=== PATIENT | male | born 1950 | race Caucasian/White ===

== ENCOUNTER 2018-10-21 16:10 | Outpatient (CLI) | payer BC, OTHER ==
[2018-10-21 17:00] LABS: INR-International Normal Ratio 1.1
[2018-10-21 17:15] LABS: ALT (SGPT) 23 U/L (8-55); AST (SGOT) 22 U/L (5-34); Albumin 4.1 g/dL (3.4-4.8); Alkaline Phosphatase 85 U/L (40-150); Anion Gap 15 mmol/L (10-20); BUN (Urea Nitrogen) 16 mg/dL (8.4-25.7); Bilirubin, Direct 0.1 mg/dL (0.1-0.3); Bilirubin, Total 0.3 mg/dL (0.2-1.2); Calc. Creatinine Clearance 0 mL/min (70-130); Calcium 9.4 mg/dL (7.8-10.44); Carbon Dioxide 20 mmol/L (23-31); Chloride 108 mmol/L (98-107); Estimated GFR-MDRD 63; Globulin 3.3 g/dL (2.4-3.5); Glucose 90 mg/dL (80-115); Potassium 4.1 mmol/L (3.5-5.1); Protein, Total 7.4 g/dL (5.8-8.1); Sodium 139 mmol/L (136-145)
== END 2018-10-21 16:11 | disposition home or self-care (01) ==
LOC: LABBT 16:10
PROVIDERS: ATTEND Internal Medicine Cardiovascular Disease
DX: Z01.812 Encounter for preprocedural laboratory examination (principal); R07.9 Chest pain, unspecified
CPT/HCPCS: 80053; 80076; 85610; 85730

== ENCOUNTER 2018-10-22 06:36 | Inpatient (IN) | payer BC, OTHER ==
[2018-10-22] MEDS ORDERED: Diazepam 5 MG TAB ONE (06:50)
[2018-10-22] MEDS ORDERED: Nitroglycerin 100MG/250ML BOT 0 ML ONE (08:20)
[2018-10-22] MEDS ORDERED: Heparin 10,000 UNITS/1 ML VIAL ONE (08:20)
[2018-10-22] MEDS ORDERED: Midazolam HCl 2 mg/2 ml Vial ONE ×2 (08:54→12:43)
[2018-10-22] MEDS ORDERED: Iopamidol 370 76% 100 ML VIAL ONE (09:32)
[2018-10-22] MEDS ORDERED: Communication Order-Pharmacy FS ONE (10:29)
[2018-10-22 11:26] LABS: #Basophils 0.1 thou/uL (0.0-0.2); #Eosinphils 0.3 thou/uL (0.0-0.7); #Lymphocytes 4.1 thou/uL (1.20-3.40); #Monocytes 0.9 thou/uL (0.11-0.59); #Neutrophils 5.7 thou/uL (1.40-6.50); %Basophils 0.9 % (0.0-1.0); %Eosinophils 2.9 % (0.0-10.0); %Lymphocytes 36.9 % (21.0-51.0); %Monocytes 8.2 % (0.0-10.0); %Neutrophils 51.1 % (42.0-75.0); Hemoglobin 14.8 g/dL (14.0-18.0); Mean Corpuscular HGB CONC 32.9 g/dL (32.0-36.0); Mean Corpuscular Hemoglobin 28.9 pg (27.0-31.0); Mean Corpuscular Volume 87.9 fL (78.0-98.0); Mean Platelet Volume 9.1 fL (7.4-10.4); Platelet Count 250 thou/uL (130-400); Red Blood Cell (RBC) Count 5.13 mill/uL (4.70-6.10); White Blood Cell (WBC) Count 11.2 thou/uL (4.8-10.8)
[2018-10-22 11:37] LABS: Hemoglobin A1c 5.5 % (4.0-6.0)
[2018-10-22] MEDS ORDERED: Midazolam HCl 5 mg/5 ml Vial ONE ×2 (12:32→14:19)
[2018-10-22] MEDS ORDERED: Dexmedetomidine 200 MCG/2 ML VIAL ONE (12:32)
[2018-10-22] MEDS ORDERED: Vecuronium 10 MG VIAL ONE ×3 (12:32→15:09)
[2018-10-22] MEDS ORDERED: Fentanyl 100 MCG/2 ML VIAL ONE (12:32)
[2018-10-22] MEDS ORDERED: Norepinephrine 8 MG/0.9% NS 250 ML ONE (12:32)
--- NOTE | 2018-10-22 12:44 | RAD ---
AP VIEW CHEST: HISTORY: Preoperative chest radiograph. Chest pain. TECHNIQUE: AP view chest is obtained. FINDINGS: EKG leads seen over the chest. The lungs are well aerated. No evidence of active intrathoracic dise ase is seen. No evidence of effusions, pneumonia, or pneumothorax is seen. IMPRESSION: Unremarkable anterior-posterior view chest. POS: [facility]
[2018-10-22] MEDS ORDERED: Heparin 10,000 UNITS/1 ML VIAL 30,000 UNITS in Sodium Chloride 0.9% 1,000 ML IVPB SCH (14:00)
[2018-10-22] MEDS ORDERED: Milrinone 10 MG/10 ML VIAL ONE (14:12)
[2018-10-22] MEDS ORDERED: Bupivacaine HCl 0.5%/Epinephrine 1:200,000/PF 30 ml Vial ONE (14:36)
[2018-10-22] MEDS ORDERED: Dexamethasone 4 mg/ml Vial ONE (14:36)
[2018-10-22] MEDS ORDERED: Albumin 5% 500 ML ONE (14:54)
[2018-10-22] MEDS ORDERED: Aminocaproic Acid 5 GM/20 ML VIAL ONE (15:09)
[2018-10-22] MEDS ORDERED: Thrombin 5000 UNITS/5 ML VIAL ONE (15:09)
[2018-10-22] MEDS ORDERED: Mannitol 12.5 GM/50 ML ONE (15:09)
[2018-10-22] MEDS ORDERED: Sodium Bicarb 50 MEQ/50 ML VIAL ONE (15:09)
[2018-10-22] MEDS ORDERED: Heparin 30,000 units/30 ml VIAL ONE (15:09)
[2018-10-22] MEDS ORDERED: Heparin 5,000 UNITS/ML VIAL ONE (15:09)
[2018-10-22] MEDS ORDERED: Glycopyrrolate 0.2 MG/ML 5 ML SYRINGE ONE (15:09)
[2018-10-22] MEDS ORDERED: Lidocaine 2% PF 100 mg/5 ml Syringe ONE (15:09)
[2018-10-22] MEDS ORDERED: Nitroglycerin 50 MG/250 ML BOT ONE (15:09)
[2018-10-22] MEDS ORDERED: ePHEDrine/0.9% NaCl/PF SYRINGE 50 mg/10 ml ONE (15:09)
[2018-10-22] MEDS ORDERED: Dexamethasone 20 MG/5 ML VIAL ONE (15:09)
[2018-10-22] MEDS ORDERED: Ondansetron PF 4 MG/2 ML Vial ONE (15:09)
[2018-10-22] MEDS ORDERED: Papaverine 60 MG/2 ML VIAL ONE (15:09)
[2018-10-22] MEDS ORDERED: Calcium Chloride 1 GM/10 ML Abboject SYRINGE ONE (15:09)
[2018-10-22] MEDS ORDERED: Protamine Sulfate 250 MG/25 ML VIAL ONE (15:09)
[2018-10-22] MEDS ORDERED: Magnesium 5 GM/10 ML VIAL ONE (15:09)
[2018-10-22] MEDS ORDERED: Cardioplegic Soln 1,000 ML BAG ONE (15:09)
[2018-10-22] MEDS ORDERED: Ketorolac Tromethamine 30 MG/ML VIAL ONE (15:09)
[2018-10-22] MEDS ORDERED: Potassium Chloride 60 MEQ/30 ML VIAL ONE (15:09)
[2018-10-22] MEDS ORDERED: Bisacodyl 5 MG TAB PO PRN (16:59)
[2018-10-22] MEDS ORDERED: Guaifenesin DM 100-10/5 ML UDCUP PO PRN (16:59)
[2018-10-22] MEDS ORDERED: HYDROcodone/Acetaminophen 5/325 mg Tablet PO PRN ×2 (16:59)
[2018-10-22] MEDS ORDERED: Bisacodyl 10 MG SUPP PR PRN (16:59)
[2018-10-22] MEDS ORDERED: Hetastarch 6% 500 ML 500 ML IVPB PRN (16:59)
[2018-10-22] MEDS ORDERED: Fentanyl 100 MCG/2 ML VIAL SLOW IVP PRN ×2 (16:59)
[2018-10-22] MEDS ORDERED: Morphine 4 MG/ML VIAL SLOW IVP PRN (16:59)
[2018-10-22] MEDS ORDERED: hydrALAZINE 20 MG/ML VIAL SLOW IVP PRN (16:59)
[2018-10-22] MEDS ORDERED: Nitroglycerin 50 MG/250 ML BOT 250 ML IVPB PRN (16:59)
[2018-10-22] MEDS ORDERED: Ondansetron PF 4 MG/2 ML Vial IVP PRN (16:59)
[2018-10-22] MEDS ORDERED: Mag-Al 1200 mg/1200 mg/30 ML UDCUP PO PRN (16:59)
[2018-10-22] MEDS ORDERED: Post-Op Insulin Drip Protocol IVPB ONE (16:59)
[2018-10-22] MEDS ORDERED: Potassium Chloride 20 MEQ/100 ML PREMIX BAG IVPB PRN (16:59)
[2018-10-22] MEDS ORDERED: Promethazine HCl 25 MG/ML VIAL IM PRN (16:59)
[2018-10-22] MEDS ORDERED: Norepinephrine 8 MG/0.9% NS 250 ML IVPB PRN (16:59)
[2018-10-22] MEDS ORDERED: CEFAZOLIN/Water 2 GM/20 ML SYRINGE SLOW IVP SCH (17:00)
[2018-10-22] MEDS ORDERED: D5 1/2 NS w/20 mEq KCL 1,000 ML IV SCH (17:00)
--- NOTE | 2018-10-22 17:09 | CON ---
DATE OF CONSULTATION: 10/22/2018 REASON FOR CONSULTATION: Evaluate the patient for urgent coronary artery bypass grafting. HISTORY OF PRESENT ILLNESS: Mr. Lopez is a 68-year-old man, who has had chest pain since August. He has had progressive shortness of breath and recurrent chest pain of multiple episodes. He was seen by Dr. Padgett and brought in for elective cardiac catheterization. At the time of catheterization, he has been found to have critical LAD diagonal stenosis. He also has an OM with a critical stenosis. I have been asked to see him and discuss coronary bypass grafting. Ventriculogram shows an ejection fraction of approximately 30%. Currently, he is resting comfortably in the PCU. PAST MEDICAL HISTORY: 1. Hypertension. 2. Arthritis. PAST SURGICAL HISTORY: 1. Toe amputation. 2. Tonsillectomy. 3. Sweat gland surgery. SOCIAL HISTORY: He is a former smoker. He has not smoked in a number of years. He does not use alcohol. ALLERGIES: CODEINE, MILK, AND EGGS. MEDICATIONS: 1. Crestor 20 mg at bedtime. 2. Entresto 24/26 mg one b.i.d. 3. Carvedilol 12.5 mg b.i.d. PHYSICAL EXAMINATION: VITAL SIGNS: Height is 66 inches, weight is 218 pounds, pulse is 70 and regular, blood pressure is 158/82. HEENT: Sclerae nonicteric. Pupils are equal and round bilaterally. NECK: Supple. He has no carotid bruits. CHEST: Clear bilaterally. HEART: Rhythm is regular. ABDOMEN: Soft and nontender without mass. EXTREMITIES: No cyanosis, clubbing, or edema. VASCULAR: Palpable carotid, radial, femoral, dorsalis pedis, and posterior tibial pulses bilaterally. VENOUS: There are no venous varicosities or venous stasis changes. PSYCHIATRIC: The patient is awake, alert, and oriented to person, place, and time. LABORATORY DATA: Of note, his PT/INR is 1.1. Potassium is 4.1, creatinine is 1.1. ASSESSMENT AND PLAN: This is a pleasant 68-year-old gentleman with critical coronary stenosis and depressed left ventricular function. Risks, benefits, and options of coronary artery bypass graft had been discussed and we will plan for bypass today. Job ID: [id number]
[2018-10-22] MEDS ORDERED: Dextrose 50% Abboject 50 ML SYRINGE SLOW IVP PRN (17:26)
[2018-10-22] MEDS ORDERED: Dextrose 5% in Water 1,000 ML IV PRN (17:26)
[2018-10-22] MEDS ORDERED: HUMULIN R 100 UNITS in Sodium Chloride 0.9% 100 ML IVPB SCH (17:26)
[2018-10-22 17:37] LABS: Actual Bicarbonate (HCO3a) 21.2 mEq/L (22-28); Base Excess (BEa) -4.8 mEq/L (-2.0 to +3.0); CO2 Tension 42.8 mmHg (35.0-45.0); Calcium, Ionized 1.13 mmol/L (1.12-1.30); Carboxyhemoglobin (COHb) 1.8 gm% (0.0-3.0); Hemoglobin (Hb) 13.8 g/dL (14.0-18.0); Potassium - ABG Lab 4.26 mmol/L (3.70-5.30); pH, Arterial 7.31 (7.35-7.45)
[2018-10-22 17:38] LABS: Puncture Site ALINE
[2018-10-22 17:40] VITALS: BMI 30.6
[2018-10-22 17:44] LABS: INR-International Normal Ratio 1.3
[2018-10-22 17:45] LABS: PTT 30.9 SEC (22.9-36.1)
[2018-10-22] MEDS ORDERED: Magnesium 2 GM/50 ML 2 GM in Premix Bag 1 BAG IVPB SCH (17:45)
[2018-10-22 18:01] LABS: Anion Gap 13 mmol/L (10-20); BUN (Urea Nitrogen) 14 mg/dL (8.4-25.7); Band 16 % (5-11); Calc. Creatinine Clearance 103 mL/min (70-130); Calcium 7.7 mg/dL (7.8-10.44); Carbon Dioxide 19 mmol/L (23-31); Chloride 112 mmol/L (98-107); Estimated GFR-MDRD 76; Glucose 144 mg/dL (80-115); Hemoglobin 13.4 g/dL (14.0-18.0); Lymphocytes 4 % (21-51); MDiff Complete? YES; Mean Corpuscular HGB CONC 31.7 g/dL (32.0-36.0); Mean Corpuscular Hemoglobin 27.6 pg (27.0-31.0); Mean Platelet Volume 8.5 fL (7.4-10.4); Monocytes 3 % (0-10); Neutrophil 77 % (42-75); Platelet Count 199 thou/uL (130-400); Platelet Morphology Comment Appears Adequate; Potassium 4.5 mmol/L (3.5-5.1); RBC Distribution Width 11.7 % (11.5-14.5); Red Blood Cell (RBC) Count 4.85 mill/uL (4.70-6.10); Sodium 139 mmol/L (136-145); White Blood Cell (WBC) Count 25.2 thou/uL (4.8-10.8)
--- NOTE | 2018-10-22 18:05 | RAD ---
RADIOGRAPH CHEST 1 VIEW: Date: 10/22/18 Time: 5:22 p.m. HISTORY: 68-year-old male status post open heart surgery. COMPARISON: 10/22/18, 11:01 a.m. FINDINGS: New sternotomy wires. New right subclavian central line with distal tip overlying SVC/right atrial ju nction. Two new left paramedian chest tubes, one vertically at the mediastinum, and the other distal tip overlying the upper lobe. Prominent interstitial markings at lung bases and perihilar regions, ne w since prior study, probably due to crowding of bronchovascular markings due to shallow inspiration. No pneumothorax identified. No fabian pulmonary edema. IMPRESSION: Status post open heart surgery with chest tubes and right subclavian central line. AIMEE [] POS: [facility]
[2018-10-22] MEDS: Ketorolac Tromethamine 30 MG/ML VIAL IVP SCH ×2 (18:08→23:17)
[2018-10-22] MEDS: Insulin Regular 300 UNITS/3 ML VIAL SC PRN ×2 (18:11→22:07)
[2018-10-22] MEDS ORDERED: HEXTEND 6% LR 500ML 500 ML IVPB PRN (19:59)
[2018-10-22] MEDS: CEFAZOLIN 2 GM/50 ML-DEXTROSE 2 GM in Premix Bag 1 BAG IVPB SCH (20:59)
[2018-10-22] MEDS ORDERED: Famotidine/PF 20 mg/2ml Vial SLOW IVP SCH (21:00)
[2018-10-22 23:54] LABS: Hemoglobin 12.5 g/dL (14.0-18.0); Potassium 4.5 mmol/L (3.5-5.1)
--- NOTE | 2018-10-22 23:57 | OP ---
DATE OF PROCEDURE: 10/22/2018 PREOPERATIVE DIAGNOSES: 1. Unstable angina. 2. Coronary artery disease. 3. Hypertension. PROCEDURES PERFORMED: 1. Urgent coronary artery bypass grafting x3. a. Left internal mammary artery to 1.25 mm mid LAD-good conduit, small target. b. Reverse saphenous vein to 1.25 mm D1-concomitant small target. c. Reverse saphenous vein 1.25 mm OM-good conduit and small target. Note, these targets should not be re-approached for redo due to size. ANESTHESIA: General endotracheal. PUMP TIME: 63 minutes. CROSS-CLAMP TIME: 33 minutes. LOW CORE TEMPERATURE: 34 degrees Celsius. CARDIAC REHABILITATION SPECIALIST: Keena Vargas. DRAINS: Laxuha-lqjl-Arlvdv chest tube x2. DRIPS: None. TRANSFUSIONS: None. DESCRIPTION OF PROCEDURE: After consent was obtained, the patient was brought to the operating room, placed in supine position on the operating room table. Appropriate lines and monitors were placed and general endotracheal anesthesia induced. Chest and legs were prepped and draped in usual sterile fashion. Greater saphenous vein was harvested from the left lower extremity utilizing endoscopic technique. Wounds were irrigated and closed in layers. A median sternotomy was performed. Left internal mammary artery was harvested as a pedicle graft. The patient was systemically heparinized. Distal pedicle was divided and infused with papaverine. Thymic fat and pericardium were divided with electrocautery. Pericardial stay sutures were placed. Aortic and atrial cannulation was performed. After adequate heparinization, retrograde priming was performed. The patient was placed on cardiopulmonary bypass. Distal targets were marked. Aortic cross- clamp was applied and an antegrade sanguineous cardioplegic arrest was obtained. 1 L of antegrade cold cardioplegia was given. Topical cold solution was used. Reverse saphenous vein was anastomosed to the OM in an end-to-side fashion with running 7-0 Prolene suture. Anastomosis was tested, it was hemostatic. Reverse saphenous vein was anastomosed to the diagonal in an end-to-side fashion with running 7-0 Prolene suture. Anastomosis was tested, it was hemostatic. The mammary artery was brought through within the pericardium and anastomosed to LAD in an end-to-side fashion with running 7-0 Prolene suture. On release, mammary claims good occluding anastomosis and good distal flow. The pedicle was secured with interrupted 6-0 Prolene suture. Cross-clamp was removed and partial occluding clamp was placed. Saphenous veins were anastomosed to individual puncture sites on the aorta with running 6-0 Prolene suture. Partial occluding clamp was removed and graft was deaired. Anastomoses were inspected for hemostasis which was good. The patient was warmed and weaned from cardiopulmonary bypass. After resumption of sinus rhythm, good hemodynamics, temperature greater than 36.5, bypass was discontinued. Transfusion was given. Appudw-inic-Spbzuv chest tubes were placed in mediastinum. Vancomycin paste was placed on the sternal edges. After adequate hemostasis had been obtained, the sternum was closed with #7 wire. The sternum was treated with platelet rich plasma. Wires were twisted and buried. 0.5% Marcaine mixed with 4 mg Decadron was injected into the pericostal spaces along the sternum and into the rectus sheath. A total of 30 mL was used. The wounds were then copiously irrigated with platelet poor plasma and closed in multiple layers. Dermabond was applied to the skin incision. The patient was awakened, extubated, and transferred to the intensive care unit in stable, but critical condition. Needle, sponge, and instrument counts were all reported as correct at the end of the procedure. Job ID: [id number] [facility]
[2018-10-23] MEDS: Insulin Regular 300 UNITS/3 ML VIAL SC PRN (01:00)
[2018-10-23 05:37] LABS: #Basophils 0.1 thou/uL (0.0-0.2); #Lymphocytes 1.6 thou/uL (1.20-3.40); #Neutrophils 12.9 thou/uL (1.40-6.50); %Basophils 0.6 % (0.0-1.0); %Eosinophils 0.3 % (0.0-10.0); %Monocytes 6.1 % (0.0-10.0); %Neutrophils 83.1 % (42.0-75.0); Hemoglobin 11.9 g/dL (14.0-18.0); Mean Corpuscular HGB CONC 33.8 g/dL (32.0-36.0); Mean Corpuscular Hemoglobin 30.1 pg (27.0-31.0); Mean Corpuscular Volume 88.9 fL (78.0-98.0); Mean Platelet Volume 8.5 fL (7.4-10.4); Platelet Count 178 thou/uL (130-400); RBC Distribution Width 11.6 % (11.5-14.5); Red Blood Cell (RBC) Count 3.95 mill/uL (4.70-6.10); White Blood Cell (WBC) Count 15.5 thou/uL (4.8-10.8)
[2018-10-23 05:54] LABS: Anion Gap 11 mmol/L (10-20); BUN (Urea Nitrogen) 14 mg/dL (8.4-25.7); Calc. Creatinine Clearance 105 mL/min (70-130); Calcium 8.1 mg/dL (7.8-10.44); Carbon Dioxide 19 mmol/L (23-31); Chloride 113 mmol/L (98-107); Estimated GFR-MDRD 77; Glucose 122 mg/dL (80-115); Potassium 4.1 mmol/L (3.5-5.1); Sodium 139 mmol/L (136-145)
[2018-10-23] MEDS: CEFAZOLIN 2 GM/50 ML-DEXTROSE 2 GM in Premix Bag 1 BAG IVPB SCH ×2 (05:59→13:55)
[2018-10-23] MEDS: Ketorolac Tromethamine 30 MG/ML VIAL IVP SCH ×3 (06:00→17:23)
[2018-10-23] MEDS ORDERED: Nitroglycerin 0.4 MG TAB (25 Tab Bottle) SL PRN (06:54)
[2018-10-23] MEDS ORDERED: Bisacodyl 5 MG TAB PO PRN (06:54)
[2018-10-23] MEDS ORDERED: Mineral Oil ENEMA PR PRN (06:54)
[2018-10-23] MEDS ORDERED: Artificial Tears 18 DROP/0.9 ML EA EYE PRN (06:54)
[2018-10-23] MEDS ORDERED: Milk Of Magnesia 30 ML UDCUP PO PRN (06:54)
[2018-10-23] MEDS ORDERED: Mag-Al 1200 mg/1200 mg/30 ML UDCUP PO PRN (06:54)
[2018-10-23] MEDS ORDERED: traMADol HCl 50 MG TAB PO PRN (06:54)
[2018-10-23] MEDS ORDERED: Zolpidem Tartrate 5 MG TAB PO PRN (06:54)
[2018-10-23] MEDS ORDERED: Bisacodyl 10 MG SUPP PR PRN (06:54)
[2018-10-23] MEDS: Magnesium 2 GM/50 ML 2 GM in Premix Bag 1 BAG IVPB SCH (07:58)
[2018-10-23] MEDS: Docusate 100 MG CAP PO SCH ×2 (07:59→21:19)
[2018-10-23] MEDS: Carvedilol 3.125 MG TAB PO SCH ×2 (07:59→21:19)
[2018-10-23] MEDS: Aspirin 325 mg Enteric Coated Tablet PO SCH (07:59)
[2018-10-23] MEDS: Famotidine 20 MG TAB PO SCH ×2 (07:59→21:19)
--- NOTE | 2018-10-23 08:57 | RAD ---
CHEST 1 VIEW: Date: 10/23/18 HISTORY: Status post open heart surgery. COMPARISON: 10/22/18. FINDINGS: Portable upright chest demonstrates sternotomy wire, mediastinal drainage catheter, left-sided chest tube, and a right-sided central venous catheter. Lung volumes are diminished. Patchy interstitial opa cities, unchanged. Stable configuration of the cardiac silhouette. Sternotomy wires are noted. IMPRESSION: Findings compatible with recent open heart surgery. POS: [facility]
[2018-10-23] MEDS ORDERED: Aspirin 325 MG TAB PO SCH (09:00)
[2018-10-23] MEDS ORDERED: Prevnar 13-Val Conj/PF 0.5 ML SYRINGE IM ONE (09:00)
[2018-10-23] MEDS: Guaifenesin DM 100-10/5 ML UDCUP PO PRN ×2 (10:06→21:19)
--- NOTE | 2018-10-23 21:10 | EKG ---
Test Reason : CABG Blood Pressure : / mmHG Vent. Rate : 074 BPM Atrial Rate : 074 BPM P-R Int : 222 ms QRS Dur : 090 ms QT Int : 436 ms P-R-T Axes : 020 -54 116 degrees QTc Int : 483 ms Poor data quality, interpretation may be adversely affected Sinus rhythm with 1st degree A-V block Left anterior fascicular block Left ventricular hypertrophy with repolarization abnormality Cannot rule out Septal infarct , age undetermined Abnormal ECG No previous ECGs available Confirmed by Zelda BETTENCOURT ([id number]) on 10/23/2018 9:09:59 PM Referred By: JULIO Confirmed By:Zelda BETTENCOURT
[2018-10-23] MEDS: Atorvastatin Calcium 20 MG TAB PO SCH (21:19)
[2018-10-23] MEDS: Acetaminophen 325 MG TAB PO PRN (21:20)
[2018-10-24] MEDS: Ketorolac Tromethamine 30 MG/ML VIAL IVP SCH ×5 (01:22→23:52)
[2018-10-24] MEDS: traMADol HCl 50 MG TAB PO PRN ×4 (01:23→23:53)
[2018-10-24] MEDS: Acetaminophen 325 MG TAB PO PRN ×2 (03:18→21:53)
[2018-10-24] MEDS: Aspirin 325 mg Enteric Coated Tablet PO SCH (08:27)
[2018-10-24] MEDS: Carvedilol 3.125 MG TAB PO SCH ×2 (08:28→21:52)
[2018-10-24] MEDS: Docusate 100 MG CAP PO SCH ×2 (08:30→21:53)
[2018-10-24] MEDS: Famotidine 20 MG TAB PO SCH ×2 (08:30→21:53)
[2018-10-24] MEDS: Guaifenesin DM 100-10/5 ML UDCUP PO PRN ×2 (08:30→17:11)
[2018-10-24] MEDS ORDERED: Furosemide 40 MG/4 ML VIAL SLOW IVP SCH (09:30)
[2018-10-24] MEDS: Magnesium 2 GM/50 ML 2 GM in Premix Bag 1 BAG IVPB SCH (10:24)
[2018-10-24] MEDS: Atorvastatin Calcium 20 MG TAB PO SCH (21:52)
[2018-10-25] MEDS ORDERED: Diltiazem HCl 125 MG, Admixture Fee 1 EACH in Sodium Chloride 0.9% 100 ML IVPB SCH (01:30)
[2018-10-25] MEDS: Ketorolac Tromethamine 30 MG/ML VIAL IVP SCH ×3 (05:27→17:00)
[2018-10-25] MEDS: Aspirin 325 mg Enteric Coated Tablet PO SCH (08:29)
[2018-10-25] MEDS: Carvedilol 3.125 MG TAB PO SCH ×2 (08:29→20:47)
[2018-10-25] MEDS: Docusate 100 MG CAP PO SCH ×2 (08:29→20:47)
[2018-10-25] MEDS: Famotidine 20 MG TAB PO SCH ×2 (08:29→20:47)
[2018-10-25] MEDS ORDERED: Amiodarone 150 MG in Dextrose 5% in Water 100 ML IVPB SCH (11:00)
[2018-10-25 11:29] LABS: ALT (SGPT) 21 U/L (8-55); AST (SGOT) 51 U/L (5-34); Albumin 3.6 g/dL (3.4-4.8); Alkaline Phosphatase 60 U/L (40-150); Bilirubin, Direct 0.4 mg/dL (0.1-0.3); Bilirubin, Total 0.8 mg/dL (0.2-1.2); Magnesium 2.5 mg/dL (1.6-2.6); Potassium 3.9 mmol/L (3.5-5.1); Protein, Total 6.1 g/dL (5.8-8.1)
[2018-10-25] MEDS: Amiodarone 450 MG, Admixture Fee 1 EACH in Dextrose 5% in Water 250 ML IVPB SCH ×2 (11:30→20:48)
[2018-10-25] MEDS: Acetaminophen 325 MG TAB PO PRN (15:19)
[2018-10-25] MEDS: Guaifenesin DM 100-10/5 ML UDCUP PO PRN (20:46)
[2018-10-25] MEDS: Atorvastatin Calcium 20 MG TAB PO SCH (20:47)
[2018-10-25] MEDS ORDERED: Lorazepam 2 MG/ML VIAL SLOW IVP SCH (23:59)
[2018-10-25] MEDS ORDERED: Amiodarone 450 MG, Admixture Fee 1 EACH in Dextrose 5% in Water 250 ML IVPB SCH (23:59)
[2018-10-26] MEDS: diphenhydrAMINE 25 MG CAP PO PRN ×2 (04:04→17:11)
[2018-10-26] MEDS ORDERED: Lorazepam 2 MG/ML VIAL SLOW IVP PRN (08:26)
[2018-10-26] MEDS ORDERED: Eucerin (Mineral Oil/Petrolatum,White) 30 gm Jar TOP PRN (08:26)
[2018-10-26] MEDS ORDERED: Milk Of Magnesia 30 ML UDCUP PO PRN (08:26)
[2018-10-26] MEDS ORDERED: Furosemide 20 MG TAB PO SCH (09:00)
[2018-10-26 09:05] LABS: #Basophils 0.1 thou/uL (0.0-0.2); #Eosinphils 0.3 thou/uL (0.0-0.7); #Lymphocytes 2.9 thou/uL (1.20-3.40); #Monocytes 1.3 thou/uL (0.11-0.59); #Neutrophils 12.6 thou/uL (1.40-6.50); %Basophils 0.4 % (0.0-1.0); %Eosinophils 1.6 % (0.0-10.0); %Lymphocytes 17.1 % (21.0-51.0); %Monocytes 7.4 % (0.0-10.0); %Neutrophils 73.5 % (42.0-75.0); Mean Corpuscular HGB CONC 33.1 g/dL (32.0-36.0); Mean Corpuscular Hemoglobin 29.5 pg (27.0-31.0); Mean Corpuscular Volume 89.1 fL (78.0-98.0); Platelet Count 226 thou/uL (130-400); RBC Distribution Width 11.9 % (11.5-14.5); Red Blood Cell (RBC) Count 4.39 mill/uL (4.70-6.10); White Blood Cell (WBC) Count 17.1 thou/uL (4.8-10.8)
[2018-10-26 09:24] LABS: Albumin 3.7 g/dL (3.4-4.8); Anion Gap 15 mmol/L (10-20); BUN (Urea Nitrogen) 15 mg/dL (8.4-25.7); BUN/Creatinine Ratio 16.85; Calc. Creatinine Clearance 118 mL/min (70-130); Calcium 9.1 mg/dL (7.8-10.44); Carbon Dioxide 23 mmol/L (23-31); Chloride 105 mmol/L (98-107); Estimated GFR-MDRD 86; Glucose 118 mg/dL (80-115); Magnesium 2.4 mg/dL (1.6-2.6); Phosphorus 2.9 mg/dL (2.3-4.7); Potassium 4.1 mmol/L (3.5-5.1); Sodium 139 mmol/L (136-145)
[2018-10-26] MEDS: traMADol HCl 50 MG TAB PO PRN (09:25)
[2018-10-26] MEDS: Docusate 100 MG CAP PO SCH ×2 (09:26→20:55)
[2018-10-26] MEDS: Aspirin 325 mg Enteric Coated Tablet PO SCH (09:26)
[2018-10-26] MEDS: Furosemide 40 MG TAB PO SCH ×2 (09:26→14:15)
[2018-10-26] MEDS: Senokot S 8.6-50 MG TAB PO SCH ×2 (09:26→20:55)
[2018-10-26] MEDS: Famotidine 20 MG TAB PO SCH ×2 (09:26→20:47)
[2018-10-26] MEDS: Carvedilol 3.125 MG TAB PO SCH (09:27)
[2018-10-26] MEDS: Potassium Chloride 10 MEQ TAB PO SCH ×2 (09:27→17:11)
[2018-10-26] MEDS: Polyethylene Glycol 3350 17 GM Packet PO SCH (09:27)
[2018-10-26] MEDS: Amiodarone 450 MG, Admixture Fee 1 EACH in Dextrose 5% in Water 250 ML IVPB SCH ×2 (09:34→23:07)
--- NOTE | 2018-10-26 10:04 | RAD ---
CHEST 1 VIEW: HISTORY: Shortness of breath. COMPARISON: A radiograph of 10/23/2018. FINDINGS: Central venous catheter is in similar position. Multifocal left basilar airspace opacities. Thee is a small left pleural effusion. No pneumothorax. Cardiac silhouette and mediastinal contours are si milar. Mediastinal drains appear to have been pulled. IMPRESSION: Interval removal of the mediastinal drains without significant change. POS: [facility]
--- NOTE | 2018-10-26 13:04 | PDOC.PN ---
- Subjective Encounter Start Date: 10/26/18 Encounter Start Time: 09:00 Patient seen and examined for med mngt. Had an episode of anxiety with SOB last night. No new complaints. No overnight events - Objective MAR Reviewed: Yes Vital Signs & Weight: Vital Signs (12 hours) Temp Pulse Pulse Pulse Resp BP BP 10/26/18 09:11 105 H 102 H 144/94 H 152/91 H 10/26/18 07:40 10/26/18 07:20 97.9 F 67 20 10/26/18 03:25 97.9 F 78 20 BP BP Pulse Ox Pulse Ox Pulse Ox 10/26/18 09:11 100 90 L 10/26/18 07:40 96 10/26/18 07:20 153/90 H 100 10/26/18 03:25 144/93 H 99 Weight Admit Weight 218 lb 14.704 oz Weight 226 lb Most Recent Monitor Data Heart Rate from ECG 77 NIBP 118/75 NIBP BP-Mean 89 Respiration from ECG 28 SpO2 93 I&O: 10/25/18 10/26/18 10/27/18 06:59 06:59 06:59 Intake Total 1324 700 Output Total 600 Balance 1324 100 Result Diagrams: 10/26/18 08:50 10/26/18 08:50 EKG Reviewed by me: Yes (Tele SR) Phys Exam - Physical Examination Constitutional: NAD Respiratory: no wheezing, no rhonchi Cardiovascular: RRR, no rub Gastrointestinal: soft, non-tender, positive bowel sounds Musculoskeletal: no edema Neurological: non-focal, moves all 4 limbs Dx/Plan (1) Anxiety Code(s): F41.9 - ANXIETY DISORDER, UNSPECIFIED Status: Acute (2) Obesity (BMI 30.0-34.9) Code(s): E66.9 - OBESITY, UNSPECIFIED Status: Chronic (3) HTN (hypertension) Code(s): I10 - ESSENTIAL (PRIMARY) HYPERTENSION Status: Chronic (4) CAD (coronary artery disease) Code(s): I25.10 - ATHSCL HEART DISEASE OF [place] CORONARY ARTERY W/O ANG PCTRS Status: Chronic (5) Atrial fibrillation with RVR Code(s): I48.91 - UNSPECIFIED ATRIAL FIBRILLATION Status: Acute Comment: on Amiodarone drip - Plan DVT proph w/SCDs Check labs and CXR -: Add low dose Benzodiazepines -: Cont other meds as below -: Will follow. Full code. DPOA - self/family Review of Systems - Review of Systems Respiratory: negative: Cough, Dry, Shortness of Breath, Hemoptysis, SOB with Excertion, Pleuritic Pain, Sputum, Wheezing Cardiovascular: negative: chest pain, palpitations, orthopnea, paroxysmal nocturnal dyspnea, edema, light headedness, other Gastrointestinal: negative: Nausea, Vomiting, Abdominal Pain, Diarrhea, Constipation, Melena, Hematochezia, Other - Medications/Allergies Allergies/Adverse Reactions: Allergies Allergy/AdvReac Type Severity Reaction Status Date / Time chicken derived Allergy Verified 10/21/18 16:43 codeine Allergy Verified 10/21/18 16:42 egg Allergy Verified 10/21/18 16:43 milk Allergy Verified 10/21/18 16:43 turkey Allergy Verified 10/21/18 16:43 Medications: Current Medications Acetaminophen (Tylenol) 650 mg PO Q6H PRN PRN Reason: Headache/Fever Or Mild Pain Last Admin: 10/25/18 15:19 Dose: 650 mg Al Hydroxide/Mg Hydroxide (Maalox) 30 ml PO Q4H PRN PRN Reason: Indigestion Albuterol/Ipratropium (Duoneb) 3 ml NEB [id number] PRN PRN Reason: SHORTNESS OF BREATH Albuterol/Ipratropium (Duoneb) 3 ml NEB [id number] PRN PRN Reason: SOB &/or Wheezing Alprazolam (Xanax) 0.25 mg PO TIDPRN PRN PRN Reason: Anxiety Artificial Tears (Tears Naturale) 0 drop EA EYE PRN PRN PRN Reason: Dry Eyes Aspirin (Ecotrin) 325 mg PO DAILY [facility] Last Admin: 10/26/18 09:26 Dose: 325 mg Atorvastatin Calcium (Lipitor) 20 mg PO HS [facility] Last Admin: 10/25/18 20:47 Dose: 20 mg Bisacodyl (Dulcolax) 10 mg PO Q12H PRN PRN Reason: Constipation Last Admin: 10/24/18 17:12 Dose: 10 mg Bisacodyl (Dulcolax) 10 mg [place] Q12H PRN PRN Reason: Constipation Carvedilol (Coreg) 3.125 mg PO BID [facility] Last Admin: 10/26/18 09:27 Dose: 3.125 mg Diphenhydramine HCl (Benadryl) 25 mg PO Q6H PRN PRN Reason: Itching & Insomnia or Johnie Jason Last Admin: 10/26/18 04:04 Dose: 25 mg Docusate Sodium (Colace) 100 mg PO BID [facility] Last Admin: 10/26/18 09:26 Dose: 100 mg Famotidine (Pepcid) 20 mg PO BID [facility] Last Admin: 10/26/18 09:26 Dose: 20 mg Furosemide (Lasix) 40 mg PO 0900,1400 [facility] Last Admin: 10/26/18 09:26 Dose: 40 mg Guaifenesin/Dextromethorphan (Robitussin Dm) 15 ml PO Q4H PRN PRN Reason: Cough Last Admin: 10/25/18 20:46 Dose: 15 ml Hydralazine HCl (Apresoline) 10 mg SLOW IVP Q6H PRN PRN Reason: To Maintain SBP< 140mmHG Amiodarone HCl 450 mg/Miscellaneous Medication 1 each/ Dextrose/Water 259 mls @ 0 mls/hr IVPB INF [facility] Last Admin: 10/26/18 09:34 Dose: 259 mls Lorazepam (Ativan) 0.5 mg SLOW IVP Q6H PRN PRN Reason: Anxiety/Agitation Magnesium Hydroxide (Milk Of Magnesium) 30 ml PO Q12H PRN PRN Reason: Constipation Magnesium Hydroxide (Milk Of Magnesium) 30 ml PO DAILYPRN PRN PRN Reason: Constipation Mineral Oil (Fleet Mineral Oil) 133 ml [place] DAILYPRN PRN PRN Reason: Constipation Mineral Oil/White Petrolatum (Eucerin Cream) 0 gm TOP BIDPRN PRN PRN Reason: Dry Skin Nitroglycerin (Nitrostat) 0.4 mg SL Q5MIN PRN PRN Reason: Chest Pain Ondansetron HCl (Zofran) 4 mg IVP Q6H PRN PRN Reason: Nausea/Vomiting Polyethylene Glycol (Miralax) 17 gm PO DAILY [facility] Last Admin: 10/26/18 09:27 Dose: 17 gm Potassium Chloride (Kcl) 20 meq IVPB PRN PRN PRN Reason: K level </= 4.0 Potassium Chloride (Klor-Con 10) 10 meq PO BID-[facility] Last Admin: 10/26/18 09:27 Dose: 10 meq Promethazine HCl (Phenergan) 6.25 mg IM Q4H PRN PRN Reason: Nausea/Vomiting Senna/Docusate Sodium (Senokot S) 1 tab PO BID [facility] Last Admin: 10/26/18 09:26 Dose: 1 tab Sodium Chloride (Flush - Normal Saline) 10 ml IVF PRN PRN PRN Reason: Saline Flush Tramadol HCl (Ultram) 50 mg PO Q6H PRN PRN Reason: Mild Pain (1-3) Last Admin: 10/23/18 15:12 Dose: 50 mg Tramadol HCl (Ultram) 100 mg PO Q6H PRN PRN Reason: Moderate Pain (4-6) Last Admin: 10/26/18 09:25 Dose: 100 mg Zolpidem Tartrate (Ambien) 5 mg PO HSPRN PRN PRN Reason: Insomnia
[2018-10-26] MEDS ORDERED: Amiodarone 150 MG in Dextrose 5% in Water 100 ML IVPB SCH (14:00)
[2018-10-26] MEDS: Guaifenesin DM 100-10/5 ML UDCUP PO PRN (17:11)
[2018-10-26] MEDS: Atorvastatin Calcium 20 MG TAB PO SCH (20:47)
[2018-10-26] MEDS: ALPRAZolam 0.25 MG TAB PO PRN (20:48)
[2018-10-26] MEDS: Carvedilol 6.25 MG TAB PO SCH (20:48)
[2018-10-26] MEDS: Sacubitril 24.5 MG/Valsartan 25.5 MG TABLET PO SCH (20:50)
[2018-10-27] MEDS: ALPRAZolam 0.25 MG TAB PO PRN ×2 (02:26→20:30)
[2018-10-27] MEDS: traMADol HCl 50 MG TAB PO PRN ×4 (02:26→23:48)
[2018-10-27] MEDS: Acetaminophen 325 MG TAB PO PRN ×3 (08:02→20:31)
[2018-10-27] MEDS ORDERED: Aspirin 325 mg Enteric Coated Tablet PO SCH (08:13)
[2018-10-27] MEDS: Carvedilol 6.25 MG TAB PO SCH ×2 (08:56→20:28)
[2018-10-27] MEDS: Furosemide 40 MG TAB PO SCH ×2 (08:56→14:54)
[2018-10-27] MEDS: Potassium Chloride 10 MEQ TAB PO SCH ×2 (08:56→17:33)
[2018-10-27] MEDS: Senokot S 8.6-50 MG TAB PO SCH ×2 (08:56→20:29)
[2018-10-27] MEDS: Sacubitril 24.5 MG/Valsartan 25.5 MG TABLET PO SCH ×2 (08:56→21:54)
[2018-10-27] MEDS: Famotidine 20 MG TAB PO SCH ×2 (08:56→20:29)
[2018-10-27] MEDS: Docusate 100 MG CAP PO SCH ×2 (08:57→20:29)
[2018-10-27] MEDS ORDERED: Digoxin 0.5 MG/2 ML AMP SLOW IVP SCH ×2 (09:00→10:00)
[2018-10-27] MEDS ORDERED: Digoxin 0.125 MG TAB PO SCH (09:00)
[2018-10-27] MEDS: Polyethylene Glycol 3350 17 GM Packet PO SCH (09:03)
[2018-10-27] MEDS: Apixaban 5 MG TAB PO SCH ×2 (09:05→20:28)
[2018-10-27] MEDS: Aspirin 81 mg Enteric Coated Tablet PO SCH (09:33)
[2018-10-27 12:29] LABS: Actual Bicarbonate (HCO3a) 22.7 mEq/L (22-28); Analyzer IN Cardio OR; Base Excess (BEa) -1.3 mEq/L (-2.0 to +3.0); Calcium, Ionized 1.14 mmol/L (1.12-1.30); Carboxyhemoglobin (COHb) 1.1 gm% (0.0-3.0); Hemoglobin (Hb) 15.5 g/dL (14.0-18.0); O2 Tension (PaO2) 392.3 mmHg (> 80.0); Potassium - ABG Lab 4.15 mmol/L (3.70-5.30); pH, Arterial 7.42 (7.35-7.45)
[2018-10-27 12:30] LABS: Actual Bicarbonate (HCO3a) 20.6 mEq/L (22-28); Analyzer IN Cardio OR; Base Excess (BEa) -4.3 mEq/L (-2.0 to +3.0); CO2 Tension 37.3 mmHg (35.0-45.0); Calcium, Ionized 1.02 mmol/L (1.12-1.30); Carboxyhemoglobin (COHb) 0.5 gm% (0.0-3.0); O2 Tension (PaO2) 388.2 mmHg (> 80.0); Potassium - ABG Lab 5.14 mmol/L (3.70-5.30); pH, Arterial 7.36 (7.35-7.45)
[2018-10-27 12:30] LABS: Actual Bicarbonate (HCO3v) 19 mEq/L (22-28); Analyzer IN Cardio OR; Base Excess -6.3 mEq/L (-2.0 to +3.0); Calcium, Ionized 1.07 mmol/L (1.16-1.32); Chloride (ABG LAB) 109 mmol/L (98-106); Hemoglobin (Hb) 11.9 g/dL (12.6-17.4); Potassium - ABG Lab 5.01 mmol/L (3.70-5.30); pH (venous) 7.32 (7.32-7.43)
[2018-10-27 12:30] LABS: Actual Bicarbonate (HCO3a) 20.6 mEq/L (22-28); Analyzer IN Cardio OR; Base Excess (BEa) -5.7 mEq/L (-2.0 to +3.0); CO2 Tension 43.2 mmHg (35.0-45.0); Calcium, Ionized 1.07 mmol/L (1.12-1.30); Carboxyhemoglobin (COHb) 1.1 gm% (0.0-3.0); Hemoglobin (Hb) 14.1 g/dL (14.0-18.0); O2 Tension (PaO2) 419.6 mmHg (> 80.0); Potassium - ABG Lab 4.03 mmol/L (3.70-5.30)
[2018-10-27 12:31] LABS: Actual Bicarbonate (HCO3a) 23.8 mEq/L (22-28); Analyzer IN Cardio OR; Base Excess (BEa) -1.4 mEq/L (-2.0 to +3.0); CO2 Tension 42.1 mmHg (35.0-45.0); Calcium, Ionized 0.97 mmol/L (1.12-1.30); Carboxyhemoglobin (COHb) 0.2 gm% (0.0-3.0); Hemoglobin (Hb) 10.7 g/dL (14.0-18.0); O2 Tension (PaO2) 300.2 mmHg (> 80.0); Potassium - ABG Lab 5.01 mmol/L (3.70-5.30); pH, Arterial 7.37 (7.35-7.45)
[2018-10-27 12:31] LABS: Actual Bicarbonate (HCO3a) 22.8 mEq/L (22-28); Analyzer IN Cardio OR; Base Excess (BEa) -4.3 mEq/L (-2.0 to +3.0); CO2 Tension 49.9 mmHg (35.0-45.0); Calcium, Ionized 1.11 mmol/L (1.12-1.30); Carboxyhemoglobin (COHb) 0.9 gm% (0.0-3.0); Hemoglobin (Hb) 13.5 g/dL (14.0-18.0); O2 Tension (PaO2) 346.1 mmHg (> 80.0); Potassium - ABG Lab 4.78 mmol/L (3.70-5.30); pH, Arterial 7.28 (7.35-7.45)
[2018-10-27] MEDS: Amiodarone 450 MG, Admixture Fee 1 EACH in Dextrose 5% in Water 250 ML IVPB SCH (15:46)
--- NOTE | 2018-10-27 18:55 | PDOC.PN ---
- Subjective Encounter Start Date: 10/27/18 Encounter Start Time: 10:30 Patient seen and examined for med mngt. Feels better. No new complaints. No overnight events - Objective MAR Reviewed: Yes Vital Signs & Weight: Vital Signs (12 hours) Temp Pulse Pulse Pulse Resp BP BP 10/27/18 13:00 87 94 80/54 L 10/27/18 12:00 98.2 F 104 H 18 10/27/18 10:52 100 10/27/18 09:06 114 H 10/27/18 09:03 114 H 10/27/18 08:56 119/75 10/27/18 07:28 98.7 F 65 20 BP BP Pulse Ox Pulse Ox Pulse Ox 10/27/18 13:00 130/76 87 L 92 L 10/27/18 12:00 107/67 96 10/27/18 10:52 10/27/18 09:06 10/27/18 09:03 10/27/18 08:56 10/27/18 07:28 115/55 L 99 Weight Admit Weight 218 lb 14.704 oz Weight 219 lb Most Recent Monitor Data Heart Rate from ECG 77 NIBP 118/75 NIBP BP-Mean 89 Respiration from ECG 28 SpO2 93 I&O: 10/26/18 10/27/18 10/28/18 06:59 06:59 06:59 Intake Total 700 1342 Output Total 600 400 Balance 100 942 Result Diagrams: 10/26/18 08:50 10/26/18 08:50 EKG Reviewed by me: Yes (Tele Afib) Phys Exam - Physical Examination Constitutional: NAD Respiratory: no wheezing, no rhonchi Cardiovascular: no rub, irregular Gastrointestinal: soft, positive bowel sounds Musculoskeletal: no edema Neurological: moves all 4 limbs Dx/Plan (1) Anxiety Code(s): F41.9 - ANXIETY DISORDER, UNSPECIFIED Status: Acute (2) Obesity (BMI 30.0-34.9) Code(s): E66.9 - OBESITY, UNSPECIFIED Status: Chronic (3) HTN (hypertension) Code(s): I10 - ESSENTIAL (PRIMARY) HYPERTENSION Status: Chronic (4) CAD (coronary artery disease) Code(s): I25.10 - ATHSCL HEART DISEASE OF [place] CORONARY ARTERY W/O ANG PCTRS Status: Chronic (5) Atrial fibrillation with RVR Code(s): I48.91 - UNSPECIFIED ATRIAL FIBRILLATION Status: Acute Comment: on Amiodarone drip - Plan cont current plan of care, DVT proph w/SCDs Cont low dose Xanax -: Afib mngt per Cardiology Review of Systems - Review of Systems Cardiovascular: negative: chest pain, palpitations, orthopnea, paroxysmal nocturnal dyspnea, edema, light headedness, other Gastrointestinal: negative: Nausea, Vomiting, Abdominal Pain, Diarrhea, Constipation, Melena, Hematochezia, Other - Medications/Allergies Allergies/Adverse Reactions: Allergies Allergy/AdvReac Type Severity Reaction Status Date / Time chicken derived Allergy Verified 10/21/18 16:43 codeine Allergy Verified 10/21/18 16:42 egg Allergy Verified 10/21/18 16:43 milk Allergy Verified 10/21/18 16:43 turkey Allergy Verified 10/21/18 16:43 Medications: Current Medications Acetaminophen (Tylenol) 650 mg PO Q6H PRN PRN Reason: Headache/Fever Or Mild Pain Last Admin: 10/27/18 14:54 Dose: 650 mg Al Hydroxide/Mg Hydroxide (Maalox) 30 ml PO Q4H PRN PRN Reason: Indigestion Albuterol/Ipratropium (Duoneb) 3 ml NEB [id number] PRN PRN Reason: SHORTNESS OF BREATH Albuterol/Ipratropium (Duoneb) 3 ml NEB [id number] PRN PRN Reason: SOB &/or Wheezing Alprazolam (Xanax) 0.25 mg PO TIDPRN PRN PRN Reason: Anxiety Last Admin: 10/27/18 02:26 Dose: 0.25 mg Apixaban (Eliquis) 5 mg PO BID [facility] Last Admin: 10/27/18 09:05 Dose: 5 mg Artificial Tears (Tears Naturale) 0 drop EA EYE PRN PRN PRN Reason: Dry Eyes Aspirin (Ecotrin) 81 mg PO DAILY [facility] Last Admin: 10/27/18 09:33 Dose: 81 mg Atorvastatin Calcium (Lipitor) 20 mg PO HS [facility] Last Admin: 10/26/18 20:47 Dose: 20 mg Bisacodyl (Dulcolax) 10 mg PO Q12H PRN PRN Reason: Constipation Last Admin: 10/24/18 17:12 Dose: 10 mg Bisacodyl (Dulcolax) 10 mg PA Q12H PRN PRN Reason: Constipation Carvedilol (Coreg) 6.25 mg PO BID [facility] Last Admin: 10/27/18 08:56 Dose: 6.25 mg Digoxin (Lanoxin) 0.125 mg PO QAM [facility] Diphenhydramine HCl (Benadryl) 25 mg PO Q6H PRN PRN Reason: Itching & Insomnia or Johnie Jason Last Admin: 10/26/18 17:11 Dose: 25 mg Docusate Sodium (Colace) 100 mg PO BID [facility] Last Admin: 10/27/18 08:57 Dose: 100 mg Famotidine (Pepcid) 20 mg PO BID [facility] Last Admin: 10/27/18 08:56 Dose: 20 mg Furosemide (Lasix) 40 mg PO 0900,1400 [facility] Last Admin: 10/27/18 14:54 Dose: 40 mg Guaifenesin/Dextromethorphan (Robitussin Dm) 15 ml PO Q4H PRN PRN Reason: Cough Last Admin: 10/26/18 17:11 Dose: 15 ml Hydralazine HCl (Apresoline) 10 mg SLOW IVP Q6H PRN PRN Reason: To Maintain SBP< 140mmHG Amiodarone HCl 450 mg/Miscellaneous Medication 1 each/ Dextrose/Water 259 mls @ 0 mls/hr IVPB INF [facility] Last Admin: 10/27/18 15:46 Dose: 259 mls Lorazepam (Ativan) 0.5 mg SLOW IVP Q6H PRN PRN Reason: Anxiety/Agitation Magnesium Hydroxide (Milk Of Magnesium) 30 ml PO Q12H PRN PRN Reason: Constipation Magnesium Hydroxide (Milk Of Magnesium) 30 ml PO DAILYPRN PRN PRN Reason: Constipation Mineral Oil (Fleet Mineral Oil) 133 ml [place] DAILYPRN PRN PRN Reason: Constipation Mineral Oil/White Petrolatum (Eucerin Cream) 0 gm TOP BIDPRN PRN PRN Reason: Dry Skin Nitroglycerin (Nitrostat) 0.4 mg SL Q5MIN PRN PRN Reason: Chest Pain Ondansetron HCl (Zofran) 4 mg IVP Q6H PRN PRN Reason: Nausea/Vomiting Polyethylene Glycol (Miralax) 17 gm PO DAILY [facility] Last Admin: 10/27/18 09:03 Dose: Not Given Potassium Chloride (Kcl) 20 meq IVPB PRN PRN PRN Reason: K level </= 4.0 Potassium Chloride (Klor-Con 10) 10 meq PO BID-[facility] Last Admin: 10/27/18 17:33 Dose: 10 meq Promethazine HCl (Phenergan) 6.25 mg IM Q4H PRN PRN Reason: Nausea/Vomiting Sacubitril/Valsartan (Entresto 24.5 Mg-25.5 Mg Tablet) 1 tab PO BID [facility] Last Admin: 10/27/18 08:56 Dose: 1 tab Senna/Docusate Sodium (Senokot S) 1 tab PO BID [facility] Last Admin: 10/27/18 08:56 Dose: 1 tab Sodium Chloride (Flush - Normal Saline) 10 ml IVF PRN PRN PRN Reason: Saline Flush Last Admin: 10/27/18 10:54 Dose: 10 ml Tramadol HCl (Ultram) 50 mg PO Q6H PRN PRN Reason: Mild Pain (1-3) Last Admin: 10/23/18 15:12 Dose: 50 mg Tramadol HCl (Ultram) 100 mg PO Q6H PRN PRN Reason: Moderate Pain (4-6) Last Admin: 10/27/18 17:42 Dose: 100 mg Zolpidem Tartrate (Ambien) 5 mg PO HSPRN PRN PRN Reason: Insomnia
[2018-10-27] MEDS: Atorvastatin Calcium 20 MG TAB PO SCH (20:28)
[2018-10-28] MEDS: traMADol HCl 50 MG TAB PO PRN ×3 (06:15→20:39)
[2018-10-28] MEDS: Amiodarone 450 MG, Admixture Fee 1 EACH in Dextrose 5% in Water 250 ML IVPB SCH (07:41)
[2018-10-28] MEDS ORDERED: PROPOFOL 20 ML ONE (09:20)
[2018-10-28 09:45] LABS: Puncture Site ALINE
[2018-10-28 09:45] LABS: Puncture Site ALINE
[2018-10-28 09:46] LABS: Puncture Site ALINE
[2018-10-28 09:46] LABS: Puncture Site ALINE
[2018-10-28 09:47] LABS: Puncture Site ALINE
[2018-10-28] MEDS: Potassium Chloride 10 MEQ TAB PO SCH ×2 (12:24→16:36)
[2018-10-28] MEDS: Apixaban 5 MG TAB PO SCH ×2 (12:25→20:37)
[2018-10-28] MEDS: Carvedilol 6.25 MG TAB PO SCH ×2 (12:25→20:37)
[2018-10-28] MEDS: Furosemide 40 MG TAB PO SCH ×2 (12:25→15:03)
[2018-10-28] MEDS: Digoxin 0.125 MG TAB PO SCH (12:25)
[2018-10-28] MEDS: Senokot S 8.6-50 MG TAB PO SCH ×2 (12:26→20:38)
[2018-10-28] MEDS: Aspirin 81 mg Enteric Coated Tablet PO SCH (12:26)
[2018-10-28] MEDS: Famotidine 20 MG TAB PO SCH ×2 (12:28→20:38)
[2018-10-28] MEDS: Sacubitril 24.5 MG/Valsartan 25.5 MG TABLET PO SCH ×2 (12:28→21:39)
[2018-10-28] MEDS: Polyethylene Glycol 3350 17 GM Packet PO SCH (12:28)
[2018-10-28] MEDS: Docusate 100 MG CAP PO SCH ×2 (12:28→20:38)
[2018-10-28] MEDS ORDERED: PROPOFOL 200 MG/20 ML VIAL ONE (13:19)
--- NOTE | 2018-10-28 17:26 | ECHO ---
TRANSESOPHAGEAL ECHOCARDIOGRAM: DATE OF PROCEDURE: 10/28/18 INDICATION: This is a 68-year-old gentleman with paroxysmal atrial fibrillation. DESCRIPTION OF PROCEDURE: The patient was taken to the PACU. The patient was sedated by anesthesiology. A transesophageal probe was placed in the distal esophagus and stomach. Echocardiographic images were obtained. The transesophageal probe was removed. FINDINGS: 1. Moderate decrease in left ventricular systolic function. 2. Left ventricle mildly dilated. 3. Mild mitral regurgitation. 4. Mild tricuspid regurgitation. 5. No thrombus noted in left atrium or left atrial appendage. 6. Atherosclerotic debris in descending aorta. IMPRESSION: No formed thrombus in the left atrium or left atrial appendage. MTDD
--- NOTE | 2018-10-28 17:30 | OP ---
CARDIOLOGY PROCEDURE NOTE: Date: 10/28/18 PROCEDURE: Electrical cardioversion. INDICATION FOR PROCEDURE: The patient is a 68-year-old gentleman with atrial fibrillation. DESCRIPTION OF PROCEDURE: The patient was taken to the PACU. The patient was sedated by anesthesiology. The patient was shocked with 200 joules of synchronized electricity on two occasions. The patient temporarily went into sinu s rhythm, but reverted back into atrial fibrillation. IMPRESSION: Unsuccessful electrical cardioversion.
[2018-10-28] MEDS: Amiodarone 200 MG TAB PO SCH (20:37)
[2018-10-28] MEDS: Atorvastatin Calcium 20 MG TAB PO SCH (20:37)
[2018-10-28] MEDS: ALPRAZolam 0.25 MG TAB PO PRN (20:40)
[2018-10-28] MEDS: Guaifenesin DM 100-10/5 ML UDCUP PO PRN (20:40)
--- NOTE | 2018-10-29 07:27 | DIS ---
DATE OF ADMISSION: 10/22/2018 DATE OF DISCHARGE: 10/29/2018 DIAGNOSES: 1. Coronary artery disease. 2. Depressed left ventricular ejection fraction. 3. Hypertension. 4. Arthritis. PROCEDURES: 1. Cardiac catheterization. 2. Coronary artery bypass grafting x3 on urgent basis-left internal mammary to left anterior descending, saphenous vein to diagonal and OM. 3. LOREN with attempted electrical cardioversion for postoperative atrial fibrillation. DESCRIPTION OF HOSPITAL STAY: Mr. Lopez was brought into the hospital with progressive shortness of breath and chest pain. He underwent cardiac catheterization revealing severe 3-vessel disease. His ejection fraction was approximately 30%. He underwent urgent coronary artery bypass grafting as above on 10/22. Postoperatively, he has had [id number] atrial fibrillation. He had an attempted cardioversion yesterday, which was unsuccessful. He has been anticoagulated with Eliquis. At the time of discharge, he is ambulatory, tolerating a regular diet, having good bowel and bladder function. He has been fitted with a LifeVest. DISCHARGE MEDICATIONS: Include, 1. Aspirin 81 mg daily. 2. Niacin 500 mg daily. 3. Crestor 20 mg at bedtime. 4. Entresto one b.i.d. 5. Amiodarone taper. 6. Eliquis 5 mg b.i.d. 7. Coreg 6.25 mg b.i.d. 8. Digoxin 0.125 mg daily. 9. Lasix 40 mg b.i.d. 10. Potassium 10 mEq b.i.d. 11. Tramadol 50 mg 1 to 2 q.6 p.r.n. Job ID: [id number]
[2018-10-29] MEDS: Potassium Chloride 10 MEQ TAB PO SCH (08:16)
[2018-10-29] MEDS: Amiodarone 200 MG TAB PO SCH (08:16)
[2018-10-29] MEDS: Apixaban 5 MG TAB PO SCH (08:17)
[2018-10-29] MEDS: Digoxin 0.125 MG TAB PO SCH (08:17)
[2018-10-29] MEDS: Carvedilol 6.25 MG TAB PO SCH (08:17)
[2018-10-29] MEDS: Docusate 100 MG CAP PO SCH (08:17)
[2018-10-29] MEDS: Aspirin 81 mg Enteric Coated Tablet PO SCH (08:17)
[2018-10-29] MEDS: Senokot S 8.6-50 MG TAB PO SCH (08:18)
[2018-10-29] MEDS: Polyethylene Glycol 3350 17 GM Packet PO SCH (08:18)
[2018-10-29] MEDS: Famotidine 20 MG TAB PO SCH (08:18)
[2018-10-29] MEDS: Furosemide 40 MG TAB PO SCH (08:18)
[2018-10-29] MEDS: traMADol HCl 50 MG TAB PO PRN (09:48)
[2018-10-29] MEDS: Sacubitril 24.5 MG/Valsartan 25.5 MG TABLET PO SCH (09:51)
[2018-10-29 11:11] VITALS: BP 108/65; TEMP 97.6
== END 2018-10-29 11:27 | disposition home or self-care (01) | DRG 236 ==
LOC: CCL 06:36 → CCU 16:59 → 2NO 10-23 12:53
PROVIDERS: ADMIT Thoracic Surgery (Cardiothoracic Vascular Surgery); ATTEND Thoracic Surgery (Cardiothoracic Vascular Surgery)
PROC: 02100Z9 Bypass Coronary Artery, One Artery from Left Internal Mammary, Open Approach (ICD-10-PCS; principal; 2018-10-22)
PROC: 021109W Bypass Coronary Artery, Two Arteries from Aorta with Autologous Venous Tissue, Open Approach (ICD-10-PCS; 2018-10-22)
PROC: 06BQ4ZZ Excision of Left Saphenous Vein, Percutaneous Endoscopic Approach (ICD-10-PCS; 2018-10-22)
PROC: 5A1221Z Performance of Cardiac Output, Continuous (ICD-10-PCS; 2018-10-22)
PROC: 5A2204Z Restoration of Cardiac Rhythm, Single (ICD-10-PCS; 2018-10-28)
DX: I25.110 Atherosclerotic heart disease of native coronary artery with unstable angina pectoris (principal); I10 Essential (primary) hypertension; I48.91 Unspecified atrial fibrillation; M19.90 Unspecified osteoarthritis, unspecified site; F41.9 Anxiety disorder, unspecified; E66.9 Obesity, unspecified; Z87.891 Personal history of nicotine dependence; Z88.8 Allergy status to other drugs, medicaments and biological substances; Z68.29 Body mass index [BMI] 29.0-29.9, adult
CPT/HCPCS: 36415; 36416; 36430; 71045; 80048; 80053; 80061; 80069; 80076; 82805; 83036; 83735; 84132; 84443; 85025; 85610; 85730; 86850; 86900; 86901; 90471; 90670; 92960; 93005; 93010; 93306; 93312; 93458; 93798; 99152; 99153; C1769; G0009; J0282; J0670; J1100; J1160; J1644; J1815; J1885; J1940; J2001; J2060; J2150; J2250; J2260; J2405; J2440; J2704; J2720; J3010; J3370; J3475; J3480; J7050; J7070; P9045; S0017; S0028

== ENCOUNTER 2018-11-08 14:16 | Observation (INO) | payer BC, OTHER ==
--- NOTE | 2018-11-08 15:43 | RAD ---
PORTABLE CHEST: Date: 11/08/18 HISTORY: Shortness of breath. Status post CABG 17 days ago. FINDINGS: Heart size is within normal limits. Postop sternotomy changes are seen. Left-sided pleural effusion i s less prominent than on the prior exam. Right lung is clear. IMPRESSION: Postop sternotomy change. Slight decrease in size of the left-sided effusion. POS: [facility]
[2018-11-08] MEDS ORDERED: Ondansetron PF 4 MG/2 ML Vial IVP PRN ×2 (18:12)
[2018-11-08] MEDS ORDERED: hydrALAZINE 20 MG/ML VIAL SLOW IVP PRN (18:12)
[2018-11-08] MEDS ORDERED: Calcium Carbonate 500 MG ChewTAB PO PRN (18:12)
[2018-11-08] MEDS ORDERED: Acetaminophen 325 MG TAB PO PRN (18:12)
[2018-11-08] MEDS ORDERED: Benzonatate 100 MG CAP PO PRN (18:12)
[2018-11-08] MEDS ORDERED: Nitroglycerin 0.4 MG TAB (25 Tab Bottle) SL PRN (18:12)
[2018-11-08] MEDS ORDERED: cloNIDine 0.1 MG TAB PO PRN (18:12)
[2018-11-08] MEDS ORDERED: Senokot S 8.6-50 MG TAB PO PRN (18:12)
[2018-11-08] MEDS ORDERED: Sodium Chloride 0.65% Nasal 44 ML BOT EA NARE PRN (18:12)
[2018-11-08] MEDS ORDERED: Diabetic Tussin 200 MG/10 ML UDCUP PO PRN (18:12)
[2018-11-08] MEDS ORDERED: Bisacodyl 5 MG TAB PO PRN (18:12)
[2018-11-08] MEDS ORDERED: Sodium Chloride 0.9% 1,000 ML IV SCH (18:30)
--- NOTE | 2018-11-08 19:09 | HP ---
PRIMARY CARE PHYSICIAN: Jono Davis MD PRIMARY CARDIOTHORACIC SURGEON: Miles Jenkins MD PRIMARY MANAGER OF CREATIVE SERVICES: Ja Padgett MD CHIEF COMPLAINT: Chest pain, shortness of breath, and dizziness. HISTORY OF PRESENTING ILLNESS: Mr. Lopez is a very pleasant 68-year-old male with past medical history of hypertension and coronary artery disease, who underwent coronary artery bypass graft x3 vessels on 10/22/2018: Who came to the emergency room with complaints of dizziness, lightheadedness, chest pain, and mild shortness of breath. Mr. Lopez had coronary artery bypass graft done on 10/22/[address] Jenkins. It was complicated by postop atrial fibrillation. At that time, a LOREN and cardioversion were attempted, but it were unsuccessful. He was discharged on amiodarone drip taper as well as Eliquis. His EF was found to be low at 30%, so he was fitted with a LifeVest prior to discharge as well. He has been feeling fine up until yesterday. He is off his pain medications almost completely as well. However, this morning he woke up and was not feeling right. He has been dizzy, lightheaded, and just felt generalized weakness. He felt that his heart was in an out of rhythm and felt palpitations. He experienced 1 episode of left arm pain going down from his left shoulder to his left elbow. The family has been trying to maintain his fluid balance based on his symptoms. He denies any decrease in urination. He denies any excessive leg swelling. He denies any orthopnea or PND, but he has experienced some shortness of breath this morning. Please note that he was also discharged on Entresto, carvedilol as well as digoxin among other medications. He is compliant with his medications. Upon presentation to the emergency room, his oxygen level was somewhat low 92% at room air. His blood pressure and heart rate were otherwise stable at 128/78 and pulse of 79. His EKG showed atrial fibrillation with controlled ventricular response at 72 beats per minute and some T-wave inversions that were rather nonspecific. Chest x-ray showed small pleural effusions bilaterally without any significant pulmonary vascular congestion. He was also found to have a BNP of 300. His cardiac enzyme was normal. He was also found to have acute renal insufficiency with a creatinine of 1.31, potassium of 5.2, and magnesium high at 3.3. He was given 20 mg of Lasix in the outside emergency room and was transferred to our facility for further evaluation. He has received no additional medication in our emergency room. He is now being admitted for further workup and care. His blood pressure in our emergency room has been anywhere from 70s to 90s systolic. He continues to feel weak and somewhat dizzy. PAST MEDICAL HISTORY: 1. Coronary artery disease, status post CABG x3, 10/22/2017. 2. Hypertension. 3. History of anxiety. 4. History of obesity. PAST SURGICAL HISTORY: 1. CABG x3, 10/22/2018. 2. History of sweat gland. 3. Left toe amputation. 4. Tonsillectomy. FAMILY HISTORY: Mother is alive and diagnosed with heart disease. Father is . Two daughters. SOCIAL HISTORY: He quit smoking about 5 to 10 years ago. No history of drug or alcohol abuse. ALLERGIES: INCLUDE CODEINE, MILK, AND EGGS. HOME MEDICATIONS: He was discharged on the following medications on 10/29/2018; 1. Aspirin 81 mg daily. 2. Niacin 500 mg daily. 3. Crestor 20 mg daily. 4. Entresto 1 tablet p.o. b.i.d. 5. Amiodarone taper. 6. Eliquis 5 mg p.o. b.i.d. 7. Coreg 6.25 mg p.o. b.i.d. 8. Digoxin 0.125 mg daily. 9. Lasix 40 mg p.o. b.i.d., but they do report that he is taking it once a day as it said on the bottle once a day. 10. Potassium 10 mEq b.i.d. 11. Tramadol 50 mg as needed every few hours. CODE STATUS: Full code discussed with the patient. LABORATORY DATA: CBC shows WBCs at 9.1, hemoglobin 13, and platelet count 471. His serum chemistry shows sodium of 134, potassium 5.2, chloride 103, bicarb 20, BUN 10, creatinine 1.31, blood sugar 121, and magnesium 3.3. BNP 331 and troponin 0.017. Liver enzymes unremarkable. DIAGNOSTIC STUDIES: Chest x-ray by my review shows bilateral small scant pleural effusion without any significant pulmonary vascular congestion. No infiltrates. A 12-lead EKG showed rate-controlled atrial fibrillation. PHYSICAL EXAMINATION: VITAL SIGNS: Upon presentation, blood pressure 128/78, pulse of 79, saturating anywhere from 88% to 92% on room air, respirations 20, and temperature 97.6. GENERAL: No acute distress, though he does appear pale and somewhat diaphoretic, but he is awake, alert, and oriented x3. He does get easily winded with long conversation, but denies any shortness of breath. HEENT: Mucous membrane is slightly dry. No oropharyngeal exudate or erythema. Head is normocephalic and atraumatic. Pupils are equal and reactive to light and accommodation. Extraocular movement intact. NECK: Supple without any lymphadenopathy, JVD, or bruit. CHEST: Clear to auscultation without any wheezing, rales, or rhonchi. HEART: Rate and rhythm are regular without any murmurs, rubs, or gallops. ABDOMEN: Soft, nontender, and nondistended with positive bowel sounds. EXTREMITIES: Free of any cyanosis, clubbing, or edema. NEUROLOGIC: Nonfocal. SKIN: Free of any rashes or bruises. Feels warm and dry to touch. PSYCHIATRIC: Normal affect. IMPRESSION AND PLAN: 1. Hypotension, most likely this is due to Entresto along with carvedilol and Lasix that the patient has been taking. Also, he has cardiomyopathy with paroxysmal atrial fibrillation, which would hamper cardiac output as well. His cardiac enzymes are unremarkable. Chest x-ray is not suggestive of any pulmonary edema at this time. This in conjugation with acute renal insufficiency is suggestive of volume depletion. We will continue to trend serial cardiac enzyme and admitted him to telemetry. We will give some of the volume back with close monitoring of any signs or symptoms of fluid overload. We will restart his home medication for his atrial fibrillation, namely amiodarone. Hold the digoxin given his renal failure. We will consult his cardiovascular surgeon in the morning as well. We will repeat the echocardiogram. Continue the LifeVest while he is in the hospital. I do not suspect a new cardiac event at this time. He is not showing any signs or symptoms to suggest infection. 2. Acute renal insufficiency and hyperkalemia. Most likely due to over-diuresis. We will hold the diuretics and this can also be secondary to hypoperfusion from hypotension. We will hold antihypertensives at this time as well. We will give some of the volume back and avoid any nephrotoxic medications. We will consult Nephrology and keep a close eye on his potassium. He was also taking potassium supplements at home, which will be interrupted. 3. Paroxysmal atrial fibrillation, currently rate controlled. Continue the Eliquis and amiodarone. Confirm the dose of the amiodarone. Digoxin will be held given acute renal insufficiency. 4. Coronary artery disease, status post coronary artery bypass grafting x3 on 10/22/2018. We will restart his aspirin and statin. Hold Entresto and beta rodolof given the low blood pressure. 5. Ischemic cardiomyopathy. Continue with the LifeVest. Resume the beta rodolfo and Lasix once his volume repleted. Cardiovascular Surgery is being consulted. Echo will be repeated. 6. Deep venous thrombosis and gastrointestinal prophylaxis. The patient is on Eliquis. We will add Pepcid b.i.d. 7. Code status. Full code discussed with the patient. DISPOSITION: Mr. Lopez is currently being admitted to the hospital with low blood pressure post coronary artery bypass graft 2 weeks ago. Estimated length of stay at this time is at least 2 to 3 midnights. Further management will depend upon his clinical course. Job ID: [id number]
[2018-11-08 19:29] LABS: Troponin I 0.021 ng/mL (< 0.028)
[2018-11-08] MEDS ORDERED: Rosuvastatin 20 MG TAB PO SCH (21:00)
[2018-11-08] MEDS: Famotidine 20 MG TAB PO SCH (21:06)
[2018-11-08] MEDS: Amiodarone 200 MG TAB PO SCH (21:06)
[2018-11-08] MEDS: Apixaban 5 MG TAB PO SCH (21:06)
--- NOTE | 2018-11-08 21:22 | CON ---
DATE OF CONSULTATION: CONSULTING PHYSICIAN: Liam Voss MD REQUESTING PHYSICIAN: Marci Valdes MD REASON FOR CONSULTATION: Acute kidney injury. IMPRESSION: Acute kidney injury, this is likely hemodynamically mediated in the context of hypotension. PLAN: 1. Rehydrate this patient and optimize hemodynamics. 2. Renally dose medications for low GFR. 3. Avoid potentially nephrotoxic agents. 4. Further management to be dependent on the clinical course. HISTORY OF PRESENT ILLNESS: History is that of 68-year-old very nice gentleman, who recently had coronary artery bypass surgery. The patient noted during the hospitalization with a baseline creatinine of about 0.8. However, at home, patient felt dizzy and blood pressure was checked, and it was 70. The patient on presentation to this place was noted with a creatinine that has been up to 1.31, so was the need for renal consultation. PAST MEDICAL HISTORY: Significant for coronary artery disease, status post recent bypass surgery, hypertension, and anxiety. FAMILY HISTORY: No family history of kidney disease. SOCIAL HISTORY: Remote tobacco use. Quit about 5 to 10 years ago. No illicit drug use. No alcohol. ALLERGIES: CODEINE, MILK, AND EGGS. MEDICATIONS: Reviewed as documented on [employer]. PHYSICAL EXAMINATION: GENERAL: The patient was found to be in any obvious distress, noted with the following vital signs. VITAL SIGNS: Blood pressure has improved over 128/78 with a pulse of 79, but was 70 at home, and O2 saturation of 88% to 92%. HEENT: Some degree of dry oral mucosa. NECK: Supple. No conjunctival injection or icterus. CARDIOVASCULAR SYSTEM: First and second heart sounds were heard. RESPIRATORY SYSTEM: Clear to auscultation. DIGESTIVE SYSTEM: Revealed a benign abdomen with positive bowel sounds. EXTREMITIES: No peripheral edema. SKIN: No new gross rash. LYMPHATICS: No peripheral lymphadenopathy. SUMMARY: A 68-year-old gentleman, who recently had a bypass surgery, presented here hypotensive with elevated creatinine. Thank you for this consultation. We will follow with you. Job ID: [id number]
[2018-11-08 22:19] LABS: Troponin I 0.017 ng/mL (< 0.028)
[2018-11-08 22:26] VITALS: BMI 28.4
[2018-11-09 06:22] LABS: #Basophils 0.1 thou/uL (0.0-0.2); #Eosinphils 0.1 thou/uL (0.0-0.7); #Lymphocytes 2.4 thou/uL (1.20-3.40); #Monocytes 0.8 thou/uL (0.11-0.59); #Neutrophils 5.6 thou/uL (1.40-6.50); %Basophils 1.1 % (0.0-1.0); %Eosinophils 1.6 % (0.0-10.0); %Lymphocytes 26.8 % (21.0-51.0); %Monocytes 9.1 % (0.0-10.0); %Neutrophils 61.3 % (42.0-75.0); Hemoglobin 11.7 g/dL (14.0-18.0); Mean Corpuscular HGB CONC 33.8 g/dL (32.0-36.0); Mean Corpuscular Hemoglobin 29.9 pg (27.0-31.0); Mean Corpuscular Volume 88.5 fL (78.0-98.0); Mean Platelet Volume 7.7 fL (7.4-10.4); Platelet Count 358 thou/uL (130-400); RBC Distribution Width 11.9 % (11.5-14.5); White Blood Cell (WBC) Count 9.1 thou/uL (4.8-10.8)
[2018-11-09 06:41] LABS: Anion Gap 13 mmol/L (10-20); BUN (Urea Nitrogen) 14 mg/dL (8.4-25.7); Calc. Creatinine Clearance 79 mL/min (70-130); Calcium 8.7 mg/dL (7.8-10.44); Carbon Dioxide 22 mmol/L (23-31); Chloride 106 mmol/L (98-107); Estimated GFR-MDRD 62; Glucose 99 mg/dL (80-115); Potassium 3.6 mmol/L (3.5-5.1); Sodium 137 mmol/L (136-145)
[2018-11-09] MEDS: Amiodarone 200 MG TAB PO SCH (08:30)
[2018-11-09] MEDS: Famotidine 20 MG TAB PO SCH (08:30)
[2018-11-09] MEDS: Apixaban 5 MG TAB PO SCH (08:30)
[2018-11-09 12:14] VITALS: TEMP 97.7
--- NOTE | 2018-11-09 12:49 | PDOC.PN ---
- Subjective Encounter Start Date: 11/09/18 Encounter Start Time: 09:40 Pt seen for followup re; hypotension. feels better. No chest pain, shortness of breath, fevers or chills. - Objective Resuscitation Status - Order Detail: 11/08/18 18:12 Resuscitation Status Routine Resuscitation Status: FULL: Full Resuscitation Discussed with: discussed w pt MAR Reviewed: Yes Vital Signs & Weight: Vital Signs (12 hours) Temp Pulse Resp BP Pulse Ox 11/09/18 11:42 97.7 F 73 16 122/62 94 L 11/09/18 08:11 97 11/09/18 07:25 97 11/09/18 07:23 97.5 F L 75 16 112/67 97 11/09/18 03:26 97.5 F L 84 21 H 111/88 97 Weight Weight 198 lb Result Diagrams: 11/09/18 06:01 11/09/18 06:01 EKG Reviewed by me: Yes (tele: NSR) Phys Exam - Physical Examination Constitutional: NAD HEENT: moist MMs Neck: supple Respiratory: clear to auscultation bilateral Cardiovascular: RRR Gastrointestinal: soft Neurological: moves all 4 limbs Psychiatric: normal affect Dx/Plan (1) Hypotension Status: Acute Comment: Improving (2) JACE (acute kidney injury) Code(s): N17.9 - ACUTE KIDNEY FAILURE, UNSPECIFIED Status: Resolved (3) Hyperkalemia Code(s): E87.5 - HYPERKALEMIA Status: Resolved - Plan * . awaiting CV surgery input Review of Systems - Medications/Allergies Allergies/Adverse Reactions: Allergies Allergy/AdvReac Type Severity Reaction Status Date / Time chicken derived Allergy Verified 11/08/18 19:44 codeine Allergy Verified 11/08/18 19:44 egg Allergy Verified 11/08/18 19:44 milk Allergy Verified 11/08/18 19:44 turkey Allergy Verified 11/08/18 19:44 Medications: Current Medications Acetaminophen (Tylenol) 650 mg PO Q4H PRN PRN Reason: Headache/Fever/Mild Pain (1-3) Last Admin: 11/09/18 04:58 Dose: 650 mg Amiodarone HCl (Cordarone) 400 mg PO BID [facility] Last Admin: 11/09/18 08:30 Dose: 400 mg Apixaban (Eliquis) 5 mg PO BID [facility] Last Admin: 11/09/18 08:30 Dose: 5 mg Benzonatate (Tessalon) 100 mg PO Q6H PRN PRN Reason: Cough Bisacodyl (Dulcolax) 10 mg PO DAILYPRN PRN PRN Reason: Constipation Calcium Carbonate (Tums) 1,000 mg PO Q4H PRN PRN Reason: Heartburn or Indigestion Clonidine (Catapres) 0.1 mg PO Q4H PRN PRN Reason: SBP > 160____ Famotidine (Pepcid) 20 mg PO BID [facility] Last Admin: 11/09/18 08:30 Dose: 20 mg Guaifenesin (Robitussin Sf) 200 mg PO Q4H PRN PRN Reason: Cough Hydralazine HCl (Apresoline) 10 mg SLOW IVP Q4H PRN PRN Reason: SBP > 180 and HR < 70 Influenza Virus Vacc Triv Types A&B (Fluzone High-Dose Syr) 0.5 ml IM .ONCE ONE Stop: 11/09/18 21:01 Nitroglycerin (Nitrostat) 0.4 mg SL Q5MIN PRN PRN Reason: Chest Pain Ondansetron HCl (Zofran) 4 mg IVP Q6H PRN PRN Reason: Nausea/Vomiting Ondansetron HCl (Zofran) 4 mg IVP Q6H PRN PRN Reason: Nausea/Vomiting Rosuvastatin Calcium (Crestor) 20 mg PO [facility] Last Admin: 11/08/18 21:06 Dose: 20 mg Senna/Docusate Sodium (Senokot S) 2 tab PO BID PRN PRN Reason: Constipation Sodium Chloride ([facility] [facility] [place] 0.65%) 0 ml EA NARE QIDPRN PRN PRN Reason: Nasal Congestion
--- NOTE | 2018-11-09 14:09 | PDOC.EVN ---
Event Note - Event Note Event Note: Patient's chart was reviewed for the purpose of Utilization Management. The patient's acuity of care does not meet the level of inpatient status. Therefore under the Medicare Provision Code 44, the patient's status will be changed to Observation. The patient's Attending Physician has been contacted and agrees.
--- NOTE | 2018-11-09 14:45 | PDOC.EVN ---
Event Note - Event Note Event Note: Discussed with Dr. Pineda. Patient's acuity does not meet inpatient status. Patient is being switched to Observation status.
[2018-11-09 15:43] VITALS: BP 103/66
--- NOTE | 2018-11-09 18:15 | PRG ---
DATE OF SERVICE: 11/09/2018 SUBJECTIVE: The patient was seen and examined. OBJECTIVE: VITAL SIGNS: Noted with the following vital signs; afebrile, temperature 97.7, pulse 73, respiratory rate of 16, O2 saturations 94%, and blood pressure of 122/62. HEENT: Unremarkable. Moist oral mucosa. NECK: Supple. No conjunctival injection or icterus. CARDIOVASCULAR: First and second heart sounds were heard. RESPIRATORY: Clear to auscultation. DIGESTIVE: Revealed a benign abdomen. Positive bowel sounds. EXTREMITIES: No peripheral edema. SKIN: No new gross rash. LYMPHATICS: No peripheral lymphadenopathy. LABORATORY INVESTIGATION: Showed a creatinine down to 1.17. IMPRESSION: Acute kidney injury, which is hemodynamically mediated in the context of hypotension and intravascular depletion. PLAN: 1. Deescalate antihypertensive and diuretics. 2. Further management to be dependent on the clinical course. From the Renal standpoint, the patient is good for discharge. Job ID: [id number]
[2018-11-09] MEDS ORDERED: Non-Formulary Item 1 EACH (Sacubitril/Valsartan [Entresto 24 Mg-26 Mg Tablet] 1 EACH) PO SCH (21:00)
[2018-11-09] MEDS ORDERED: Aspirin 81 mg Enteric Coated Tablet PO SCH (21:00)
[2018-11-09] MEDS ORDERED: Carvedilol 3.125 MG TAB PO SCH (21:00)
[2018-11-09] MEDS ORDERED: Carvedilol 6.25 MG TAB PO SCH (21:00)
[2018-11-09] MEDS ORDERED: Sacubitril 24.5 MG/Valsartan 25.5 MG TABLET PO SCH (21:00)
--- NOTE | 2018-11-10 05:06 | DIS ---
DATE OF ADMISSION: 11/08/2018 DATE OF DISCHARGE: 11/09/2018 PRIMARY CARE PROVIDER: Dr. Jono Davis. DISCHARGE DIAGNOSES: 1. Hypotension. 2. Hyperkalemia. 3. Acute kidney injury. CONDITION OF PATIENT ON THE DAY OF DISCHARGE: Stable. I assessed Mr. Lopez on the day of discharge. Please refer to my daily progress note for further details regarding this [id number] encounter. HOSPITAL COURSE: Mr. Lopez is a pleasant 68-year-old gentleman, who was admitted to [facility] on November 08, 2018, for hypotension, acute kidney injury, and hyperkalemia. Please refer to Dr. Valdes's history and physical note, dated November 09, 2018, for further details. He was seen by Nephrology and CV surgery services. His Coreg dose was decreased to 3.125 mg 2 times a day. Furosemide and potassium chloride were discontinued. Acute kidney injury, resolved. Hyperkalemia resolved. He is being discharged home in a stable condition. He is advised to check his blood pressure and heart rate 3 times a day and show the readings to his primary care provider. He also has followup appointments with cardiovascular surgery service and cardiology service. DISCHARGE MEDICATIONS: Medication changes as described above. Otherwise, the remainder of the home medications as dictated on Dr. Valdes's history and physical note, dated November 08, 2018 were continued. Many thanks for allowing me to participate in your patient's care. Please feel free to contact me with any questions or concerns. DISCHARGE DESTINATION: Home. Job ID: [id number]
[2018-11-10] MEDS ORDERED: Non-Formulary Item 1 EACH (Glucosam/Chondr-Msm1/D3/C/Mang [Glucosamine Chondroitin Comple PO SCH (09:00)
[2018-11-10] MEDS ORDERED: Non-Formulary Item 1 EACH (Cod Liver Oil [Cod Liver Oil] 1 EACH) PO SCH (09:00)
[2018-11-10] MEDS ORDERED: Fish Oil 1,000 MG CAP PO SCH (09:00)
[2018-11-10] MEDS ORDERED: NIACINAMIDE 500 MG PO SCH (09:00)
[2018-11-10] MEDS ORDERED: [Glucosamine Chondroitin Comple PO SCH (09:00)
== END 2018-11-09 16:54 | disposition home or self-care (01) ==
LOC: ERS 14:16 → 2NO 16:43 → INTOOBSV 16:43
PROVIDERS: ADMIT Internal Medicine; ATTEND Internal Medicine
DX: I95.9 Hypotension, unspecified (principal); N17.9 Acute kidney failure, unspecified; E87.5 Hyperkalemia; I10 Essential (primary) hypertension; I25.10 Atherosclerotic heart disease of native coronary artery without angina pectoris; I48.0 Paroxysmal atrial fibrillation; I25.5 Ischemic cardiomyopathy; F41.9 Anxiety disorder, unspecified; E66.9 Obesity, unspecified; Z68.28 Body mass index [BMI] 28.0-28.9, adult; Z87.891 Personal history of nicotine dependence; Z89.422 Acquired absence of other left toe(s); Z90.89 Acquired absence of other organs; Z91.018 Allergy to other foods; Z95.1 Presence of aortocoronary bypass graft; Z95.5 Presence of coronary angioplasty implant and graft; Z88.5 Allergy status to narcotic agent; Z91.012 Allergy to eggs; Z91.011 Allergy to milk products; Z79.82 Long term (current) use of aspirin; Z79.01 Long term (current) use of anticoagulants; Z79.899 Other long term (current) drug therapy
CPT/HCPCS: 36415; 71045; 80048; 84484; 85025; 93005; 93306; G0378

== ENCOUNTER 2022-11-14 11:25 | Inpatient (IN) | payer MEDICARE ==
[2022-11-14 12:06] LABS: #Basophils 0.1 thou/uL (0.0-0.2); #Eosinphils 0.5 thou/uL (0.0-0.7); #Monocytes 1.1 thou/uL (0.11-0.59); #Neutrophils 5.2 thou/uL (1.40-6.50); %Eosinophils 5.8 % (0.0-10.0); %Lymphocytes 22.8 % (21.0-51.0); %Neutrophils 58.4 % (42.0-75.0); Hemoglobin 14.2 g/dL (14.0-18.0); Mean Corpuscular HGB CONC 33.3 g/dL (32.0-36.0); Mean Corpuscular Hemoglobin 29.9 pg (27.0-31.0); Mean Corpuscular Volume 89.9 fl (78.0-98.0); Mean Platelet Volume 8.3 fL (7.4-10.4); Platelet Count 176 10x3/uL (130-400); RBC Distribution Width 12.5 % (11.5-14.5); Red Blood Cell (RBC) Count 4.75 mill/uL (4.70-6.10); White Blood Cell (WBC) Count 8.8 10x3/uL (4.8-10.8)
[2022-11-14 12:22] LABS: ALT (SGPT) 12 U/L (8-55); AST (SGOT) 16 U/L (5-34); Albumin 4.1 g/dL (3.4-4.8); Alkaline Phosphatase 74 U/L (40-110); Anion Gap 12 mmol/L (10-20); BUN (Urea Nitrogen) 11 mg/dL (8.4-25.7); Bilirubin, Total 0.6 mg/dL (0.2-1.2); Calc. Creatinine Clearance 0 mL/min (70-130); Calcium 9.3 mg/dL (7.8-10.44); Carbon Dioxide 24 mmol/L (23-31); Chloride 108 mmol/L (98-107); Estimated GFR 75; Globulin 3.2 g/dL (2.4-3.5); Glucose 112 mg/dL (80-115); Lipase 61 U/L (8-78); Potassium 4.3 mmol/L (3.5-5.1); Protein, Total 7.3 g/dL (5.8-8.1); Sodium 140 mmol/L (136-145)
[2022-11-14] MEDS ORDERED: Oxymetazoline HCl 0.05% (30 ML BOT) NS PRN (13:38)
[2022-11-14] MEDS ORDERED: Furosemide 20 MG/2 ML VIAL SLOW IVP SCH (13:45)
[2022-11-14] MEDS ORDERED: Ipratropium/Albuterol 3 ML NEB ONE (13:58)
[2022-11-14] MEDS ORDERED: Loratadine 10 MG TAB PO SCH (14:00)
[2022-11-14 15:52] LABS: Troponin I Less than 0.010 ng/mL (< 0.028)
[2022-11-14] MEDS: Loratadine 10 MG TAB PO SCH (16:19)
[2022-11-14] MEDS: Carvedilol 25 MG TAB PO SCH (16:19)
[2022-11-14] MEDS: Benzonatate 100 MG CAP PO SCH ×2 (16:19→19:56)
[2022-11-14 16:26] VITALS: BMI 31.6
[2022-11-14] MEDS ORDERED: Ipratropium/Albuterol 3 ML NEB NEB SCH (17:00)
[2022-11-14] MEDS: Acetaminophen 325 MG TAB PO PRN (17:21)
[2022-11-14] MEDS ORDERED: Furosemide 40 MG/4 ML VIAL SLOW IVP SCH (18:45)
[2022-11-14 19:08] LABS: Troponin I Less than 0.010 ng/mL (< 0.028)
[2022-11-14] MEDS: Aspirin Chewable 81 MG TAB PO SCH (19:56)
[2022-11-14] MEDS: Rosuvastatin 20 MG TAB PO SCH (19:56)
[2022-11-14] MEDS ORDERED: Fish Oil 1,000 MG CAP PO SCH (21:00)
[2022-11-15 05:27] LABS: Anion Gap 14 mmol/L (10-20); BUN (Urea Nitrogen) 13 mg/dL (8.4-25.7); Calc. Creatinine Clearance 96 mL/min (70-130); Calcium 9.4 mg/dL (7.8-10.44); Carbon Dioxide 24 mmol/L (23-31); Chloride 104 mmol/L (98-107); Estimated GFR 80; Glucose 102 mg/dL (80-115); Potassium 4.3 mmol/L (3.5-5.1); Sodium 138 mmol/L (136-145)
[2022-11-15] MEDS: Furosemide 100 MG/10 ML VIAL SLOW IVP SCH ×2 (05:45→14:56)
[2022-11-15] MEDS: guaiFENesin 200 MG TAB PO PRN ×2 (05:57→17:07)
[2022-11-15] MEDS: Carvedilol 25 MG TAB PO SCH (09:14)
[2022-11-15] MEDS: Aspirin Chewable 81 MG TAB PO SCH ×2 (09:14→20:08)
[2022-11-15] MEDS: Benzonatate 100 MG CAP PO SCH ×3 (09:14→20:09)
[2022-11-15] MEDS: Spironolactone 25 MG TAB PO SCH (09:14)
[2022-11-15] MEDS: Loratadine 10 MG TAB PO SCH (09:17)
[2022-11-15] MEDS: Apixaban 5 MG TAB PO SCH (20:08)
[2022-11-15] MEDS: Rosuvastatin 20 MG TAB PO SCH (20:09)
[2022-11-15] MEDS: Carvedilol 6.25 MG TAB PO SCH (20:09)
[2022-11-15] MEDS: Ipratropium/Albuterol 3 ML NEB NEB PRN (20:11)
[2022-11-16] MEDS: Ipratropium/Albuterol 3 ML NEB NEB PRN ×2 (04:36→15:05)
[2022-11-16 05:15] LABS: Anion Gap 15 mmol/L (10-20); BUN (Urea Nitrogen) 17 mg/dL (8.4-25.7); Calc. Creatinine Clearance 84 mL/min (70-130); Calcium 9.7 mg/dL (7.8-10.44); Carbon Dioxide 24 mmol/L (23-31); Chloride 102 mmol/L (98-107); Estimated GFR 71; Glucose 108 mg/dL (80-115); Potassium 3.7 mmol/L (3.5-5.1); Sodium 137 mmol/L (136-145)
[2022-11-16] MEDS: Furosemide 40 MG/4 ML VIAL SLOW IVP SCH ×2 (05:22→14:31)
[2022-11-16] MEDS: Loratadine 10 MG TAB PO SCH (08:30)
[2022-11-16] MEDS: Aspirin Chewable 81 MG TAB PO SCH ×2 (09:03→21:00)
[2022-11-16] MEDS: Benzonatate 100 MG CAP PO SCH ×3 (09:03→21:03)
[2022-11-16] MEDS: Spironolactone 25 MG TAB PO SCH (09:03)
[2022-11-16] MEDS: Apixaban 5 MG TAB PO SCH ×2 (09:03→21:00)
[2022-11-16] MEDS: Carvedilol 6.25 MG TAB PO SCH ×2 (09:03→21:03)
[2022-11-16] MEDS: guaiFENesin 200 MG TAB PO PRN ×2 (14:40→22:22)
[2022-11-16] MEDS: Rosuvastatin 20 MG TAB PO SCH (21:00)
[2022-11-17 05:30] LABS: #Basophils 0.1 thou/uL (0.0-0.2); #Eosinphils 0.6 thou/uL (0.0-0.7); #Lymphocytes 3.2 thou/uL (1.20-3.40); #Monocytes 1.2 thou/uL (0.11-0.59); #Neutrophils 6.2 thou/uL (1.40-6.50); %Basophils 0.6 % (0.0-1.0); %Eosinophils 5.3 % (0.0-10.0); %Lymphocytes 28.4 % (21.0-51.0); %Monocytes 10.6 % (0.0-10.0); Hemoglobin 15.8 g/dL (14.0-18.0); Mean Corpuscular HGB CONC 32.8 g/dL (32.0-36.0); Mean Corpuscular Hemoglobin 29.3 pg (27.0-31.0); Mean Corpuscular Volume 89.3 fl (78.0-98.0); Mean Platelet Volume 8.5 fL (7.4-10.4); Platelet Count 247 10x3/uL (130-400); RBC Distribution Width 12.5 % (11.5-14.5); Red Blood Cell (RBC) Count 5.39 mill/uL (4.70-6.10); White Blood Cell (WBC) Count 11.3 10x3/uL (4.8-10.8)
[2022-11-17 05:53] LABS: Anion Gap 14 mmol/L (10-20); BUN (Urea Nitrogen) 18 mg/dL (8.4-25.7); Calc. Creatinine Clearance 80 mL/min (70-130); Calcium 9.9 mg/dL (7.8-10.44); Carbon Dioxide 24 mmol/L (23-31); Chloride 102 mmol/L (98-107); Estimated GFR 68; Glucose 119 mg/dL (80-115); Magnesium 2.4 mg/dL (1.6-2.6); Potassium 3.8 mmol/L (3.5-5.1); Sodium 136 mmol/L (136-145)
[2022-11-17] MEDS: Furosemide 40 MG/4 ML VIAL SLOW IVP SCH ×2 (05:55→13:06)
[2022-11-17] MEDS: Loratadine 10 MG TAB PO SCH (08:43)
[2022-11-17] MEDS: Carvedilol 6.25 MG TAB PO SCH ×2 (08:43→19:44)
[2022-11-17] MEDS: Benzonatate 100 MG CAP PO SCH ×3 (08:43→19:44)
[2022-11-17] MEDS: Spironolactone 25 MG TAB PO SCH (08:43)
[2022-11-17] MEDS: Apixaban 5 MG TAB PO SCH ×2 (08:43→19:43)
[2022-11-17] MEDS: Aspirin Chewable 81 MG TAB PO SCH ×2 (08:43→19:43)
[2022-11-17] MEDS ORDERED: Empagliflozin 10 MG TAB PO SCH (12:45)
[2022-11-17] MEDS: guaiFENesin 200 MG TAB PO PRN (14:03)
[2022-11-17] MEDS: Rosuvastatin 20 MG TAB PO SCH (19:44)
[2022-11-18] MEDS: Ipratropium/Albuterol 3 ML NEB NEB PRN (00:10)
[2022-11-18 04:50] LABS: Anion Gap 17 mmol/L (10-20); BUN (Urea Nitrogen) 22 mg/dL (8.4-25.7); Calc. Creatinine Clearance 77 mL/min (70-130); Calcium 9.4 mg/dL (7.8-10.44); Carbon Dioxide 22 mmol/L (23-31); Chloride 102 mmol/L (98-107); Estimated GFR 65; Glucose 105 mg/dL (80-115); Magnesium 2.3 mg/dL (1.6-2.6); Potassium 3.5 mmol/L (3.5-5.1); Sodium 137 mmol/L (136-145)
[2022-11-18] MEDS: Furosemide 40 MG/4 ML VIAL SLOW IVP SCH ×2 (06:27→14:37)
[2022-11-18] MEDS ORDERED: Cetirizine HCl 10 MG TAB PO SCH (09:00)
[2022-11-18] MEDS: Apixaban 5 MG TAB PO SCH ×2 (09:01→20:40)
[2022-11-18] MEDS: Carvedilol 6.25 MG TAB PO SCH (09:01)
[2022-11-18] MEDS: Benzonatate 100 MG CAP PO SCH ×3 (09:01→20:41)
[2022-11-18] MEDS: Sacubitril 49 MG/Valsartan 51 MG TABLET PO SCH ×2 (09:02→20:41)
[2022-11-18] MEDS: Empagliflozin 10 MG TAB PO SCH (09:02)
[2022-11-18] MEDS: Spironolactone 25 MG TAB PO SCH (09:02)
[2022-11-18] MEDS: Aspirin Chewable 81 MG TAB PO SCH ×2 (09:02→20:42)
[2022-11-18] MEDS: Loratadine 10 MG TAB PO SCH (09:03)
[2022-11-18] MEDS: guaiFENesin ER 600 MG TAB PO SCH ×2 (09:37→20:42)
[2022-11-18] MEDS: Fluticasone Propionate Nasal Spray 16 gm Bottle NASAL SCH ×2 (09:38→20:42)
[2022-11-18] MEDS: Acetaminophen 325 MG TAB PO PRN (12:23)
[2022-11-18] MEDS: Carvedilol 3.125 MG TAB PO SCH (20:41)
[2022-11-18] MEDS: Rosuvastatin 20 MG TAB PO SCH (20:41)
[2022-11-19] MEDS: Fluticasone Propionate Nasal Spray 16 gm Bottle NASAL SCH (09:00)
[2022-11-19] MEDS ORDERED: Furosemide 40 MG TAB PO SCH ×2 (09:00)
[2022-11-19] MEDS: Sacubitril 49 MG/Valsartan 51 MG TABLET PO SCH (09:01)
[2022-11-19] MEDS: Benzonatate 100 MG CAP PO SCH (09:01)
[2022-11-19] MEDS: Loratadine 10 MG TAB PO SCH (09:01)
[2022-11-19] MEDS: Aspirin Chewable 81 MG TAB PO SCH (09:01)
[2022-11-19] MEDS: Empagliflozin 10 MG TAB PO SCH (09:01)
[2022-11-19] MEDS: Spironolactone 25 MG TAB PO SCH (09:01)
[2022-11-19] MEDS: Apixaban 5 MG TAB PO SCH (09:01)
[2022-11-19] MEDS: Carvedilol 3.125 MG TAB PO SCH (09:02)
[2022-11-19] MEDS: guaiFENesin ER 600 MG TAB PO SCH (09:02)
[2022-11-19 11:41] VITALS: BP 111/58; TEMP 98.4
[2022-11-20] MEDS ORDERED: Furosemide 40 MG TAB PO SCH (07:30)
[2022-11-20] MEDS ORDERED: Furosemide 20 MG TAB PO SCH (07:30)
== END 2022-11-19 13:14 | disposition home or self-care (01) | DRG 291 ==
LOC: ERS 11:25 → 2SW 14:14 → OBSVTOIN 11-15 06:45
PROVIDERS: ADMIT Family Medicine; ATTEND Family Medicine
DX: I50.43 Acute on chronic combined systolic (congestive) and diastolic (congestive) heart failure (principal); J96.01 Acute respiratory failure with hypoxia; I48.19 Other persistent atrial fibrillation; Z96.651 Presence of right artificial knee joint; I25.10 Atherosclerotic heart disease of native coronary artery without angina pectoris; E78.5 Hyperlipidemia, unspecified; I25.5 Ischemic cardiomyopathy; Z20.822 Contact with and (suspected) exposure to COVID-19; Z91.012 Allergy to eggs; Z91.011 Allergy to milk products; Z88.5 Allergy status to narcotic agent; Z91.018 Allergy to other foods; Z91.09 Other allergy status, other than to drugs and biological substances; Z95.1 Presence of aortocoronary bypass graft; Z89.429 Acquired absence of other toe(s), unspecified side; Z98.890 Other specified postprocedural states; Z87.891 Personal history of nicotine dependence
CPT/HCPCS: 36415; 36416; 71045; 71046; 80048; 80053; 83690; 83735; 83880; 84484; 85025; 93005; 93306; 93798; 93880; 94640; 96372; 96374; 96375; 96376; G0378; J1650; J1940; J7620; U0003; U0005

== ENCOUNTER 2022-12-19 13:51 | Outpatient (CLI) | payer MEDICARE ==
[2022-12-19 14:45] LABS: PTT 29.9 sec (22.0-33.0); Prothrombin Time 10.9 sec (9.5-12.1)
[2022-12-19 14:53] LABS: Hemoglobin 15.1 g/dL (13.5-17.5); Mean Corpuscular HGB CONC 32.5 g/dL (32.0-36.0); Mean Corpuscular Hemoglobin 28.3 pg (27.0-33.0); Mean Corpuscular Volume 87.2 fl (81.2-95.1); Mean Platelet Volume 10.9 fl (7.4-10.4); Platelet Count 246 10x3/uL (150-450); RBC Distribution Width 14.1 % (11.5-14.5); Red Blood Cell (RBC) Count 5.33 10x6/uL (4.32-5.72); White Blood Cell (WBC) Count 9.2 10x3/uL (3.5-10.5)
[2022-12-19 15:09] LABS: Anion Gap 14 mmol/L (10-20); BUN (Urea Nitrogen) 16 mg/dL (8.4-25.7); Calc. Creatinine Clearance 0 mL/min (70-130); Carbon Dioxide 23 mmol/L (23-31); Chloride 106 mmol/L (98-107); Estimated GFR 65; Glucose 84 mg/dL (80-115); Potassium 3.8 mmol/L (3.5-5.1); Sodium 139 mmol/L (136-145)
== END 2022-12-19 13:52 | disposition home or self-care (01) ==
LOC: LABBT 13:51
PROVIDERS: ATTEND Internal Medicine Cardiovascular Disease
DX: Z01.812 Encounter for preprocedural laboratory examination (principal); I48.0 Paroxysmal atrial fibrillation
CPT/HCPCS: 80048; 85027; 85610; 85730

== ENCOUNTER 2022-12-23 08:26 | Day surgery (SDC) | payer MEDICARE ==
[2022-12-19 11:52] VITALS: BMI 29.9
[2022-12-23] MEDS ORDERED: Heparin 25,000 units/D5W 500 ML ONE (10:56)
[2022-12-23] MEDS ORDERED: Protamine Sulfate 50 MG/5 ML VIAL ONE (10:56)
[2022-12-23] MEDS ORDERED: Heparin 10,000 UNITS/ 10 ML VIAL ONE (10:56)
[2022-12-23] MEDS ORDERED: Isoproterenol 0.2 MG/1 ML AMP ONE (10:57)
[2022-12-23] MEDS ORDERED: FENTANYL 50 MCG/ML 1 ML VIAL ONE ×2 (11:52→14:30)
[2022-12-23] MEDS ORDERED: PHENYLEPHRINE-NS 100 MCG/ML 10 ML SYRINGE ONE (13:51)
[2022-12-23] MEDS ORDERED: Furosemide 40 MG TAB PO PRN ×2 (14:31)
[2022-12-23] MEDS ORDERED: Ketorolac Tromethamine 30 MG/ML VIAL ONE (15:07)
[2022-12-23] MEDS ORDERED: Sucralfate 1 GM TAB PO SCH ×2 (17:00)
== END 2022-12-23 18:59 | disposition home or self-care (01) ==
LOC: SDC 08:26
PROVIDERS: ATTEND Internal Medicine Cardiovascular Disease
PROC: 02583ZZ Destruction of Conduction Mechanism, Percutaneous Approach (ICD-10-PCS; principal; 2022-12-23)
PROC: 02K83ZZ Map Conduction Mechanism, Percutaneous Approach (ICD-10-PCS; 2022-12-23)
PROC: 4A023FZ Measurement of Cardiac Rhythm, Percutaneous Approach (ICD-10-PCS; 2022-12-23)
PROC: 4A0234Z Measurement of Cardiac Electrical Activity, Percutaneous Approach (ICD-10-PCS; 2022-12-23)
DX: I48.19 Other persistent atrial fibrillation (principal); I11.0 Hypertensive heart disease with heart failure; I50.32 Chronic diastolic (congestive) heart failure; I25.10 Atherosclerotic heart disease of native coronary artery without angina pectoris; I25.2 Old myocardial infarction; I42.9 Cardiomyopathy, unspecified; Z95.5 Presence of coronary angioplasty implant and graft; Z95.1 Presence of aortocoronary bypass graft; Z79.01 Long term (current) use of anticoagulants; Z79.82 Long term (current) use of aspirin; Z79.84 Long term (current) use of oral hypoglycemic drugs; Z79.899 Other long term (current) drug therapy; Z88.5 Allergy status to narcotic agent; Z88.8 Allergy status to other drugs, medicaments and biological substances; Z91.011 Allergy to milk products; Z91.012 Allergy to eggs; Z91.018 Allergy to other foods; Z87.891 Personal history of nicotine dependence
CPT/HCPCS: 85347 ×2; 93005; 93622; 93623; 93656; J3010; C1732; C1759; C1760; C1894; J1644; J1885; J2720